=== PATIENT | male | born 1955 | race Caucasian/White ===

== ENCOUNTER 2021-09-30 20:41 | Emergency (ER) | payer OTHER ==
[~2021-09-30] VITALS: Ht 177.8 cm; Wt 106.6 kg
[~2021-09-30 20:41] MED LIST: ALLO100; ALLO100 PO; ALLOPURINOL; AMOX500 PO; ASPI81EC PO; BLOOD PRESSURE MED; BUPR150T2 PO; CARV25 PO; CLIN300 PO; COLC.6; COLC.6 PO; CRUTCH3 USE; CYCL10 PO; DIAZ10; DIAZ10 PO; DIAZ5; DIAZ5 PO; DIGO.125; DIGO.125 PO; DOCU100 PO; DULO30 PO; ETOD200 PO; ETOD300 PO; FENO145 PO; FLUO20; FLUO20 PO; GLIP10; GLIP10 PO; GLIP5; HYDACE10B PO; HYDACE5; HYDACE5 PO; HYDACE5325; INSN100I SC; INSR10I SC; INSULANI; INSULANI SC; KETO120T TP; LEVFLO500 PO; LEVO750; LEVSOD100; LEVSOD125 PO; LEVSOD175; LEVSOD200; LEVSOD200 PO; LISI20 PO; LORA1 PO; LOSA25 PO; MECL25 PO; METF500; METH10; METO100; METO100 PO; METO100ER; METO50ER; MIRT15 PO; MORP20ER PO; MORP30 PO; MORP30ER PO; NAPR500 PO; NAPR500ERA; NAPR550 PO; NIAC500 PO; NITR.4SL SL; ONDA4 PO; ONDA8ODT MM; OXYACE5T PO; OXYACE7.5T PO; OXYC5 PO; PRED20; PRED20 PO; PROM25 PO; QUET25 PO; RANI150; RXAMOX500 PO; RXHYDACE PO; RXNAPNA550 PO; RXOXYACE PO; RXTRAM50 PO; SENN187 PO; SIMV40; SIMV40 PO; SIMV5; SPIR25; TIZA4; TRAM50; TRAZ100; TRAZ50; TRAZ50 PO; TRIA80TC TOP; VALS80; VITAMIN A&D; WARF2.5; WARF2.5 PO; WARF4; WARF4 PO; WARF5; WARF5 PO; ZOLP10 PO; [UNRECOGNIZED DRUG - OTHER]; [UNRECOGNIZED DRUG - REMARK]; [UNRECOGNIZED DRUG - REMARK]; [UNRECOGNIZED DRUG - REMARK]; [UNRECOGNIZED DRUG - REMARK]; [UNRECOGNIZED DRUG - REMARK]; [UNRECOGNIZED DRUG - REMARK]; [UNRECOGNIZED DRUG - SUPPLY]
[2021-09-30 21:21] LABS: BASOPHILS ABSOLUTE AUTO 0.04 K/mm3 (0.00-0.23); BASOPHILS PERCENT AUTO 1 % (0-2); EOSINOPHILS PERCENT AUTO 1 % (0-6); Hematocrit 41.4 % (37.0-53.0); Hemoglobin 13.7 g/dL (13.5-17.5); IMMATURE GRAN ABSOLUTE AUTO 0.03 K/mm3 (0.00-0.10); IMMATURE GRAN PERCENT AUTO 0 % (0-1); LYMPHOCYTES PERCENT AUTO 5 % (21-46); MONOCYTES ABSOLUTE AUTO 0.74 K/mm3 (0.16-1.47); MONOCYTES PERCENT AUTO 9 % (4-13); Mean Corpuscular HGB 28.5 pg (26.0-34.0); Mean Corpuscular HGB Conc 33.1 g/dL (31.5-36.5); Mean Corpuscular Volume 86 fL (80-100); Mean Platelet Volume 10.8 fL (9.1-12.4); NEUTROPHILS ABSOLUTE AUTO 7.07 K/mm3 (1.96-9.15); NEUTROPHILS PERCENT AUTO 84 % (41-73); Platelet Count 187 K/mm3 (150-400); RDW Coefficient Variation 12.6 % (11.7-14.2); RDW Standard Deviation 39.5 fL (35.1-46.3); White Blood Cell Count 8.38 K/mm3 (4.00-11.30)
[2021-09-30 21:34] LABS: Influenza A, PCR NEGATIVE (NEGATIVE); Influenza B, PCR NEGATIVE (NEGATIVE); Resp Syncytial Virus, PCR NEGATIVE (NEGATIVE)
[2021-09-30 21:40] LABS: Alanine Aminotransfer (ALT/SGP 28 U/L (12-78); Albumin, Blood 3.4 g/dL (3.4-5.0); Albumin/Globulin Ratio 0.9 (0.8-1.8); Alk Phos 76 U/L (50-136); Anion Gap 7 mmol/L (6-16); Aspartate Aminotrans (AST/SGOT 21 U/L (12-37); Bilirubin, Total 0.9 mg/dL (0.1-1.0); Blood Urea Nitrogen 26 mg/dL (8-24); Bun/Creatinine Ratio 17.7 (12.0-20.0); CO2, Blood 23 mmol/L (21-32); Chloride, Blood 110 mmol/L (98-108); Creatinine, Blood 1.47 mg/dL (0.60-1.20); Globulin, Blood 3.8 g/dL (2.2-4.0); Glomerular Filtration Rate 48 (60-); Glucose, Blood 121 mg/dL (70-99); Potassium, Blood 4.2 mmol/L (3.5-5.5); Sodium, Blood 140 mmol/L (136-145); Total Protein, Blood 7.2 g/dL (6.4-8.2); Troponin I <0.015 ng/mL (0.000-0.040)
[2021-09-30 22:31] LABS: SARS-Cov-2 (COVID-19) PCR, MMC POSITIVE (NEGATIVE)
[2021-10-01] MEDS ORDERED: METO10 PO (00:55)
[2021-10-01] MEDS ORDERED: PROMETHAZINE12.5 M1 PO (00:55)
[2021-10-01] MEDS ORDERED: PRED20 PO (23:24)
[2021-10-01] MEDS ORDERED: HYDROCOD/ACETAM 5-32 (23:24)
[2021-10-02] MEDS ORDERED: ATOR40TA PO (01:59)
[2021-10-02] MEDS ORDERED: ELIQUIS5 M2 PO (01:59)
[2021-10-02] MEDS ORDERED: DOXE10 PO (02:00)
[2021-10-02] MEDS ORDERED: ZYRTEC10 M2 PO (02:00)
[2021-10-02] MEDS ORDERED: CYMBALTA30 M1 PO (02:00)
[2021-10-02] MEDS ORDERED: ESZO1 PO (02:01)
[2021-10-02] MEDS ORDERED: GABA400 PO (02:02)
[2021-10-02] MEDS ORDERED: INSULANPEN SC (02:10)
[2021-10-02] MEDS ORDERED: LOSA25 PO (02:10)
[2021-10-02] MEDS ORDERED: LEVSOD112 PO (02:10)
[2021-10-02] MEDS ORDERED: TOPROL XL200 MG PO (02:11)
[2021-10-02] MEDS ORDERED: METO50ER PO (02:12)
[2021-10-02] MEDS ORDERED: MORP15ER PO (02:13)
[2021-10-02] MEDS ORDERED: MIRT15 PO (02:13)
[2021-10-02] MEDS ORDERED: PANT40 PO (02:14)
[2021-10-02] MEDS ORDERED: PREG150 PO (02:14)
== END 2021-10-01 01:07 | disposition home or self-care (01) ==
LOC: ER 20:41
PROVIDERS: Physician Assistant
DX: U07.1 COVID-19 (principal); E03.9 Hypothyroidism, unspecified; I25.2 Old myocardial infarction; I50.9 Heart failure, unspecified; N18.9 Chronic kidney disease, unspecified; Z79.4 Long term (current) use of insulin
CPT/HCPCS: 0241U; 36415; 70450; 71045; 80053; 83880; 84484; 85025; 93005; 93010; 94640; 94664; 96374; 96375; 99284-25; A9270; J1790; J1885; J2765; J7030

== ENCOUNTER 2021-10-01 22:31 | Inpatient (IN) | payer OTHER ==
[~2021-10-01] VITALS: Ht 190.5 cm; Wt 102.5 kg
[~2021-10-01 22:31] MED LIST changes: +METO10 PO; +PROMETHAZINE12.5 M1 PO
[2021-10-01 22:47] LABS: BASOPHILS ABSOLUTE AUTO 0.04 K/mm3 (0.00-0.23); BASOPHILS PERCENT AUTO 1 % (0-2); EOSINOPHILS ABSOLUTE AUTO 0.07 K/mm3 (0.00-0.68); EOSINOPHILS PERCENT AUTO 1 % (0-6); Hematocrit 39.8 % (37.0-53.0); Hemoglobin 13.1 g/dL (13.5-17.5); IMMATURE GRAN ABSOLUTE AUTO 0.02 K/mm3 (0.00-0.10); IMMATURE GRAN PERCENT AUTO 0 % (0-1); LYMPHOCYTES ABSOLUTE AUTO 0.84 K/mm3 (0.84-5.20); LYMPHOCYTES PERCENT AUTO 17 % (21-46); MONOCYTES ABSOLUTE AUTO 0.75 K/mm3 (0.16-1.47); MONOCYTES PERCENT AUTO 15 % (4-13); Mean Corpuscular HGB 28.8 pg (26.0-34.0); Mean Corpuscular HGB Conc 32.9 g/dL (31.5-36.5); Mean Corpuscular Volume 88 fL (80-100); Mean Platelet Volume 11.4 fL (9.1-12.4); NEUTROPHILS ABSOLUTE AUTO 3.37 K/mm3 (1.96-9.15); NEUTROPHILS PERCENT AUTO 66 % (41-73); Platelet Count 143 K/mm3 (150-400); RDW Coefficient Variation 12.8 % (11.7-14.2); RDW Standard Deviation 41.2 fL (35.1-46.3); Red Blood Cell Count 4.55 M/mm3 (4.30-5.90); White Blood Cell Count 5.09 K/mm3 (4.00-11.30)
[2021-10-01 23:16] LABS: Alanine Aminotransfer (ALT/SGP 27 U/L (12-78); Albumin/Globulin Ratio 0.7 (0.8-1.8); Alk Phos 74 U/L (50-136); Anion Gap 9 mmol/L (6-16); Aspartate Aminotrans (AST/SGOT 26 U/L (12-37); Bilirubin, Total 0.5 mg/dL (0.1-1.0); Blood Urea Nitrogen 29 mg/dL (8-24); Bun/Creatinine Ratio 17.6 (12.0-20.0); CO2, Blood 23 mmol/L (21-32); Calcium, Blood 8.6 mg/dL (8.5-10.1); Chloride, Blood 107 mmol/L (98-108); Creatinine, Blood 1.65 mg/dL (0.60-1.20); Globulin, Blood 4.1 g/dL (2.2-4.0); Glomerular Filtration Rate 42 (60-); Glucose, Blood 248 mg/dL (70-99); Potassium, Blood 4.5 mmol/L (3.5-5.5); Sodium, Blood 139 mmol/L (136-145); Total Protein, Blood 7.1 g/dL (6.4-8.2); Troponin I <0.015 ng/mL (0.000-0.040)
[2021-10-01] MEDS ORDERED: PRED20 PO (23:24)
[2021-10-01] MEDS ORDERED: HYDROCOD/ACETAM 5-32 (23:24)
[2021-10-02] MEDS ORDERED: ATOR40TA PO (01:59)
[2021-10-02] MEDS ORDERED: ELIQUIS5 M2 PO (01:59)
[2021-10-02] MEDS ORDERED: DOXE10 PO (02:00)
[2021-10-02] MEDS ORDERED: CYMBALTA30 M1 PO (02:00)
[2021-10-02] MEDS ORDERED: ZYRTEC10 M2 PO (02:00)
[2021-10-02] MEDS ORDERED: ESZO1 PO (02:01)
[2021-10-02] MEDS ORDERED: GABA400 PO (02:02)
[2021-10-02] MEDS ORDERED: LEVSOD112 PO (02:10)
[2021-10-02] MEDS ORDERED: INSULANPEN SC (02:10)
[2021-10-02] MEDS ORDERED: LOSA25 PO (02:10)
[2021-10-02] MEDS ORDERED: TOPROL XL200 MG PO (02:11)
[2021-10-02] MEDS ORDERED: METO50ER PO (02:12)
[2021-10-02] MEDS ORDERED: MORP15ER PO (02:13)
[2021-10-02] MEDS ORDERED: MIRT15 PO (02:13)
[2021-10-02] MEDS ORDERED: PREG150 PO (02:14)
[2021-10-02] MEDS ORDERED: PANT40 PO (02:14)
[2021-10-02 03:28] LABS: Base Excess Venous -0.5 mmol/L; Bicarbonate Venous 23.8 mmol/L (24.0-30.0); PCO2 Venous 40.5 mmHg (38-42); PO2 Venous 53.2 mmHg (38-42); pH Blood Venous 7.39 (7.34-7.37)
[2021-10-02 03:33] LABS: BASOPHILS ABSOLUTE AUTO 0.02 K/mm3 (0.00-0.23); BASOPHILS PERCENT AUTO 0 % (0-2); EOSINOPHILS ABSOLUTE AUTO 0.01 K/mm3 (0.00-0.68); EOSINOPHILS PERCENT AUTO 0 % (0-6); Hematocrit 39.4 % (37.0-53.0); IMMATURE GRAN ABSOLUTE AUTO 0.01 K/mm3 (0.00-0.10); IMMATURE GRAN PERCENT AUTO 0 % (0-1); LYMPHOCYTES ABSOLUTE AUTO 0.25 K/mm3 (0.84-5.20); LYMPHOCYTES PERCENT AUTO 4 % (21-46); MONOCYTES ABSOLUTE AUTO 0.29 K/mm3 (0.16-1.47); MONOCYTES PERCENT AUTO 5 % (4-13); Mean Corpuscular HGB 28.6 pg (26.0-34.0); Mean Corpuscular Volume 87 fL (80-100); Mean Platelet Volume 11.4 fL (9.1-12.4); NEUTROPHILS ABSOLUTE AUTO 5.31 K/mm3 (1.96-9.15); NEUTROPHILS PERCENT AUTO 90 % (41-73); Platelet Count 125 K/mm3 (150-400); RDW Coefficient Variation 12.7 % (11.7-14.2); RDW Standard Deviation 40.2 fL (35.1-46.3); Red Blood Cell Count 4.54 M/mm3 (4.30-5.90); White Blood Cell Count 5.89 K/mm3 (4.00-11.30)
[2021-10-02 03:50] LABS: Albumin, Blood 3.3 g/dL (3.4-5.0); Albumin/Globulin Ratio 0.8 (0.8-1.8); Bilirubin, Total 0.6 mg/dL (0.1-1.0); Bun/Creatinine Ratio 17.2 (12.0-20.0); Creatinine, Blood 1.69 mg/dL (0.60-1.20); Globulin, Blood 3.9 g/dL (2.2-4.0); Total Protein, Blood 7.2 g/dL (6.4-8.2)
[2021-10-02 10:00] LABS: Source, Urine Clean Catch
[2021-10-02 10:15] LABS: Appearance, Urine Clear (Clear); Bilirubin, Urine Neg (Neg); Blood, Urine Neg (Neg); Glucose Qualitative, Urine Neg (Neg); Ketones, Urine Neg (Neg); Leukocyte Esterase, Urine Neg (Neg); Nitrite, Urine Neg (Neg); Protein, Urine Neg (Neg); Urobilinogen, Urine NORM (Normal)
[2021-10-02 10:40] LABS: Color, Urine Pale Yellow (P-Yellow)
--- NOTE | 2021-10-02 15:41 | NUR ---
Spiritual Care visit. Pt. was sitting up and alert but coughing significantly. Established rapport and empathetically listened to a life review. Pt. is unsetteled about the timing of his hospitalization, as he and his family are in the process of moving. Normalized patient experience. Explored sources of support smf explored issues of haroldo and belief. Offered emotional support and my pastoral presence during his hospitalization. Pt. displayed evidence of encouragement and improved hope. Pt. has a pleasant demeanor. Prayed with Pt. Pt. verbalized gratitude and welcomed a return visit.
--- NOTE | 2021-10-02 18:51 | NUR ---
SHIFT REVIEW, NO REAL CHANGE IN PT SINCE ADMITION. O2 4LT HF, PT TRANSFERED TO MED NO TELI. VITALS HAVE BEEN WNL. PT RESTING COMFORTABLE AND IN NO DISTRESS.
[2021-10-03 04:37] LABS: Calcium, Blood 8.9 mg/dL (8.5-10.1); Creatinine, Blood 1.5 mg/dL (0.60-1.20); Potassium, Blood 4.6 mmol/L (3.5-5.5)
--- NOTE | 2021-10-03 12:05 | NUR ---
Spiritual Care visit. Pt, was alert and on the phone. I stepped out for a moment for him to finish his call. Pt. Welcomed my visit. Pt. was a little unsettled about waiting for discharge. Facilitated a life review. Listened empathetically. Provided Pastoral christian counselor and provided anticipatory guidance for post-recovery. Pt. displayed evidence of agreement. Prayed with pt. and will monitor should he not be ready for discharge. Pt. verbalized gratitude and welcomed me to return.
--- NOTE | 2021-10-03 19:57 | NUR ---
SHIFT ASSESSMENT ASSUMED CARE OF PT @ 1900. PT A&OX4. VSS. DENIES C/O OF SHORTNESS OF BREATH, CURRENTLY ON ROOM AIR c O2 SATS >90%. OCCASIONAL COUGH WITH EXERTION. PT STATES HE IS FEELING MUCH BETTER TODAY AND IS ASKING ABOUT GOING HOME. PT MED STATUS, WILL CONTINUE TO MONITOR CLOSELY.
[2021-10-04 04:12] LABS: Bun/Creatinine Ratio 31.5 (12.0-20.0); Calcium, Blood 8.8 mg/dL (8.5-10.1); Creatinine, Blood 1.65 mg/dL (0.60-1.20); Potassium, Blood 4.5 mmol/L (3.5-5.5)
--- NOTE | 2021-10-04 06:09 | NUR ---
SHIFT SUMMARY PT ABLE TO SLEEP FOR MAJORITY OF THE NIGHT. PT REMAINS OFF OF SUPPLEMENTAL O2. SATS >90%. BP STABLE. PTS CBG ELEVATED. WHILE PROVIDING A DRINK FOR PT, THIS NURSE ASKED WHAT HE HAS BEEN DRINKING. PT STATED HE HAS BEEN DRINKING SPRITE DURING THE DAY. WHEN ASKED IF DRINK IS DIET, PT RESPONDED "I THINK". ICU DOES NOT STOCK DIET SPRITE, SO PT POTENTIALLY RECEIVING HIGH GLUCOSE BEVERAGE. DRINK REMOVED FROM BEDSIDE, PROVIDED PT WITH DIET SODA PER REQUEST. HOSPITALIST NOTIFIED REGARDING ELEVATED GLUCOSE, NEW ORDERS PLACED FOR GLARGINE, SEE MAR. NO OTHER ACUTE CHANGES.
--- NOTE | 2021-10-04 08:42 | NUR ---
AM NOTE... ASSUMED CARE OF PT AT 0700, THE PT IS A&Ox4 AND IND IN THE ROOM. THE PT'S VS STABLE THIS AM. PT IS ON RA WITH O2 SATS >98%. L/S CLEAR IN THE UPPER AND MID LOBES WITH FINE CRACKLES NOTED IN THE BASES. THE PLAN OF CARE IS FOR THE PT TO D/C HOME TODAY. THE PT DENIES ANY PAIN DURING THIS ASSESSMENT. CALL LIGHT IN REACH WILL CONTINUE TO MONITOR.
[2021-10-04] MEDS ORDERED: FURO40 PO (09:41)
--- NOTE | 2021-10-04 10:56 | NUR ---
PT D/C HOME... PT D/C HOME, ALL OF PT'S BELONGINGS PACKED AND SENT WITH THE PT. THE PT'S IVs WERE REMOVED WNL. VERBAL AND WRITTEN DISCHARGE EDUCATION PROVIDED TO THE PT, THE PT VERBALIZED HIS UNDERSTANDING. THE PT'S WAS CALLED AND UPDATED ON THE PT'S DISCHARGE PLANS. THE PT WAS ESCORTED OUT OF THE FACILITY VIA W/C.
[2021-10-10] MEDS ORDERED: CODEINE-GUAIFE120 M1 PO (16:11)
== END 2021-10-04 11:00 | disposition home or self-care (01) | DRG 871 ==
LOC: ER 22:31 → ICUE 10-02 02:44 → ICUW 10-02 02:44 → ICUE 10-02 02:45
PROVIDERS: Family Medicine; Internal Medicine; Student in an Organized Health Care Education/Training Program; ADMIT Family Medicine
PROC: 5A09357 Assistance with Respiratory Ventilation, Less than 24 Consecutive Hours, Continuous Positive Airway Pressure (ICD-10-PCS; principal; 2021-10-02)
PROC: 5A0935A Assistance with Respiratory Ventilation, Less than 24 Consecutive Hours, High Flow/Velocity Cannula (ICD-10-PCS; 2021-10-02)
PROC: 8E0ZXY6 Isolation (ICD-10-PCS; 2021-10-02)
PROC: 3E0333Z Introduction of Anti-inflammatory into Peripheral Vein, Percutaneous Approach (ICD-10-PCS; 2021-10-02)
PROC: XW033E5 Introduction of Remdesivir Anti-infective into Peripheral Vein, Percutaneous Approach, New Technology Group 5 (ICD-10-PCS; 2021-10-02)
PROC: XW0DXM6 Introduction of Baricitinib into Mouth and Pharynx, External Approach, New Technology Group 6 (ICD-10-PCS; 2021-10-02)
DX: A41.89 Other specified sepsis (principal); U07.1 COVID-19; J96.01 Acute respiratory failure with hypoxia; I50.23 Acute on chronic systolic (congestive) heart failure; I13.0 Hypertensive heart and chronic kidney disease with heart failure and stage 1 through stage 4 chronic kidney disease, or unspecified chronic kidney disease; R65.20 Severe sepsis without septic shock; I25.10 Atherosclerotic heart disease of native coronary artery without angina pectoris; I25.2 Old myocardial infarction; E11.22 Type 2 diabetes mellitus with diabetic chronic kidney disease; N18.30 Chronic kidney disease, stage 3 unspecified; E03.9 Hypothyroidism, unspecified; M10.9 Gout, unspecified; Z88.8 Allergy status to other drugs, medicaments and biological substances; Z91.018 Allergy to other foods; Z88.5 Allergy status to narcotic agent; Z28.21 Immunization not carried out because of patient refusal; Z79.899 Other long term (current) drug therapy; Z79.4 Long term (current) use of insulin; Z79.82 Long term (current) use of aspirin; Z95.0 Presence of cardiac pacemaker; Z87.891 Personal history of nicotine dependence
CPT/HCPCS: 36415; 71045; 71260; 80048; 80053; 81003; 82803; 82947; 83605; 83880; 84145; 84484; 85025; 87040; 93005; 93010; 94660; 96374; 96375; 97110; 97162; 99285-25; A9270; C9399; J0248; J0456; J0696; J1100; J1815; J1885; J1940; J7050; Q9967

== ENCOUNTER 2021-10-09 11:41 | Emergency (ER) | payer OTHER ==
[~2021-10-09] VITALS: Ht 177.8 cm; Wt 113.4 kg
[~2021-10-09 11:41] MED LIST changes: +ATOR40TA PO; +CYMBALTA30 M1 PO; +DOXE10 PO; +ELIQUIS5 M2 PO; +ESZO1 PO; +FURO40 PO; +GABA400 PO; +HYDROCOD/ACETAM 5-32; +INSULANPEN SC; +LEVSOD112 PO; +METO50ER PO; +MORP15ER PO; +PANT40 PO; +PREG150 PO; +TOPROL XL200 MG PO; +ZYRTEC10 M2 PO
[2021-10-09 13:05] LABS: BASOPHILS ABSOLUTE AUTO 0.01 K/mm3 (0.00-0.23); BASOPHILS PERCENT AUTO 0 % (0-2); EOSINOPHILS ABSOLUTE AUTO 0.11 K/mm3 (0.00-0.68); EOSINOPHILS PERCENT AUTO 2 % (0-6); Hematocrit 46.6 % (37.0-53.0); Hemoglobin 15.4 g/dL (13.5-17.5); IMMATURE GRAN ABSOLUTE AUTO 0.02 K/mm3 (0.00-0.10); IMMATURE GRAN PERCENT AUTO 0 % (0-1); LYMPHOCYTES ABSOLUTE AUTO 0.59 K/mm3 (0.84-5.20); LYMPHOCYTES PERCENT AUTO 11 % (21-46); MONOCYTES ABSOLUTE AUTO 0.49 K/mm3 (0.16-1.47); MONOCYTES PERCENT AUTO 9 % (4-13); Mean Corpuscular HGB 27.9 pg (26.0-34.0); Mean Corpuscular Volume 84 fL (80-100); Mean Platelet Volume 11.9 fL (9.1-12.4); NEUTROPHILS ABSOLUTE AUTO 4.01 K/mm3 (1.96-9.15); NEUTROPHILS PERCENT AUTO 77 % (41-73); Platelet Count 124 K/mm3 (150-400); RDW Coefficient Variation 12.4 % (11.7-14.2); Red Blood Cell Count 5.52 M/mm3 (4.30-5.90); White Blood Cell Count 5.23 K/mm3 (4.00-11.30)
[2021-10-09 13:25] LABS: Albumin, Blood 3.2 g/dL (3.4-5.0); Albumin/Globulin Ratio 0.8 (0.8-1.8); Bilirubin, Total 0.3 mg/dL (0.1-1.0); Bun/Creatinine Ratio 19.6 (12.0-20.0); Calcium, Blood 8.5 mg/dL (8.5-10.1); Creatinine, Blood 1.84 mg/dL (0.60-1.20); Globulin, Blood 4.2 g/dL (2.2-4.0); Potassium, Blood 4.4 mmol/L (3.5-5.5); Total Protein, Blood 7.4 g/dL (6.4-8.2)
[2021-10-09] MEDS ORDERED: BENZ100A PO (17:00)
[2021-10-10] MEDS ORDERED: CODEINE-GUAIFE120 M1 PO (16:11)
== END 2021-10-09 17:12 | disposition home or self-care (01) ==
LOC: ER 11:41
PROVIDERS: Physician Assistant
DX: U07.1 COVID-19 (principal); I95.1 Orthostatic hypotension; E86.0 Dehydration; I25.2 Old myocardial infarction; I25.10 Atherosclerotic heart disease of native coronary artery without angina pectoris; E11.22 Type 2 diabetes mellitus with diabetic chronic kidney disease; I13.0 Hypertensive heart and chronic kidney disease with heart failure and stage 1 through stage 4 chronic kidney disease, or unspecified chronic kidney disease; N18.30 Chronic kidney disease, stage 3 unspecified; I50.9 Heart failure, unspecified; E03.9 Hypothyroidism, unspecified; Z79.899 Other long term (current) drug therapy; Z79.4 Long term (current) use of insulin; Z88.6 Allergy status to analgesic agent; Z91.018 Allergy to other foods; Z88.8 Allergy status to other drugs, medicaments and biological substances; Z88.5 Allergy status to narcotic agent; Z87.891 Personal history of nicotine dependence
CPT/HCPCS: 36415; 71045; 80053; 83880; 84145; 84484; 85025; 94640; 99284-25; A9270; J7030

== ENCOUNTER 2021-10-12 09:26 | Emergency (ER) | payer OTHER ==
[~2021-10-12] VITALS: Ht 177.8 cm; Wt 113.4 kg
[~2021-10-12 09:26] MED LIST changes: +BENZ100A PO; +CODEINE-GUAIFE120 M1 PO
[2021-10-12 10:20] LABS: BASOPHILS ABSOLUTE AUTO 0.01 K/mm3 (0.00-0.23); BASOPHILS PERCENT AUTO 0 % (0-2); EOSINOPHILS ABSOLUTE AUTO 0.02 K/mm3 (0.00-0.68); EOSINOPHILS PERCENT AUTO 0 % (0-6); Hemoglobin 14.8 g/dL (13.5-17.5); IMMATURE GRAN ABSOLUTE AUTO 0.04 K/mm3 (0.00-0.10); IMMATURE GRAN PERCENT AUTO 1 % (0-1); LYMPHOCYTES ABSOLUTE AUTO 0.84 K/mm3 (0.84-5.20); LYMPHOCYTES PERCENT AUTO 11 % (21-46); MONOCYTES ABSOLUTE AUTO 0.69 K/mm3 (0.16-1.47); MONOCYTES PERCENT AUTO 9 % (4-13); Mean Corpuscular HGB 27.9 pg (26.0-34.0); Mean Corpuscular HGB Conc 32.9 g/dL (31.5-36.5); Mean Corpuscular Volume 85 fL (80-100); Mean Platelet Volume 11.1 fL (9.1-12.4); NEUTROPHILS ABSOLUTE AUTO 5.93 K/mm3 (1.96-9.15); NEUTROPHILS PERCENT AUTO 79 % (41-73); Platelet Count 148 K/mm3 (150-400); RDW Coefficient Variation 12.5 % (11.7-14.2); RDW Standard Deviation 38.5 fL (35.1-46.3); Red Blood Cell Count 5.31 M/mm3 (4.30-5.90); White Blood Cell Count 7.53 K/mm3 (4.00-11.30)
[2021-10-12 10:51] LABS: Alanine Aminotransfer (ALT/SGP 21 U/L (12-78); Albumin/Globulin Ratio 0.7 (0.8-1.8); Alk Phos 84 U/L (50-136); Anion Gap 8 mmol/L (6-16); Aspartate Aminotrans (AST/SGOT 33 U/L (12-37); Bilirubin, Total 0.5 mg/dL (0.1-1.0); Blood Urea Nitrogen 17 mg/dL (8-24); Bun/Creatinine Ratio 14.5 (12.0-20.0); CO2, Blood 23 mmol/L (21-32); Calcium, Blood 8.8 mg/dL (8.5-10.1); Chloride, Blood 103 mmol/L (98-108); Creatinine, Blood 1.17 mg/dL (0.60-1.20); Globulin, Blood 4.4 g/dL (2.2-4.0); Glomerular Filtration Rate >60 (60-); Glucose, Blood 196 mg/dL (70-99); Potassium, Blood 4.2 mmol/L (3.5-5.5); Sodium, Blood 134 mmol/L (136-145); Total Protein, Blood 7.4 g/dL (6.4-8.2); Troponin I <0.015 ng/mL (0.000-0.040)
[2021-10-12] MEDS ORDERED: BENZ100A PO (11:21)
[2021-10-12] MEDS ORDERED: Mucinex600 MG PO (11:21)
[2021-10-12] MEDS ORDERED: ONDA4ODT MM (11:48)
== END 2021-10-12 11:50 | disposition home or self-care (01) ==
LOC: ER 09:26
PROVIDERS: Emergency Medicine
DX: U07.1 COVID-19 (principal); S39.011A Strain of muscle, fascia and tendon of abdomen, initial encounter; E03.9 Hypothyroidism, unspecified; E11.22 Type 2 diabetes mellitus with diabetic chronic kidney disease; I13.0 Hypertensive heart and chronic kidney disease with heart failure and stage 1 through stage 4 chronic kidney disease, or unspecified chronic kidney disease; N18.30 Chronic kidney disease, stage 3 unspecified; I50.9 Heart failure, unspecified; Z87.891 Personal history of nicotine dependence; Z88.8 Allergy status to other drugs, medicaments and biological substances; X58.XXXA Exposure to other specified factors, initial encounter
CPT/HCPCS: 36415; 71045; 80053; 83690; 84484; 85025; 85379; 93005; 93010; 96374; 96375; 99285-25; J2270; J2405

== ENCOUNTER 2022-08-17 10:17 | Emergency (ER) | payer OTHER ==
[~2022-08-17] VITALS: Ht 177.8 cm; Wt 89.8 kg
[~2022-08-17 10:17] MED LIST changes: +Mucinex600 MG PO; +ONDA4ODT MM
[2022-08-17] MEDS ORDERED: Percocet 5-3251 EACH PO ×3 (14:08→15:47)
== END 2022-08-17 14:20 | disposition home or self-care (01) ==
LOC: ER 10:17
DX: M25.532 Pain in left wrist (principal); I13.0 Hypertensive heart and chronic kidney disease with heart failure and stage 1 through stage 4 chronic kidney disease, or unspecified chronic kidney disease; I50.9 Heart failure, unspecified; E11.22 Type 2 diabetes mellitus with diabetic chronic kidney disease; N18.30 Chronic kidney disease, stage 3 unspecified; I25.2 Old myocardial infarction; I25.10 Atherosclerotic heart disease of native coronary artery without angina pectoris; E03.9 Hypothyroidism, unspecified; V89.2XXA Person injured in unspecified motor-vehicle accident, traffic, initial encounter; Z79.4 Long term (current) use of insulin; Z79.899 Other long term (current) drug therapy; Z79.01 Long term (current) use of anticoagulants; Z88.8 Allergy status to other drugs, medicaments and biological substances; Z79.890 Hormone replacement therapy
CPT/HCPCS: 73110

== ENCOUNTER 2022-08-24 12:20 | Inpatient (IN) | payer OTHER, MEDICARE ==
[~2022-08-24] VITALS: Ht 177.8 cm; Wt 89.4 kg
[~2022-08-24 12:20] MED LIST changes: +Percocet 5-3251 EACH PO
[2022-08-24 14:03] LABS: BASOPHILS ABSOLUTE AUTO 0.11 K/mm3 (0.00-0.23); BASOPHILS PERCENT AUTO 1 % (0-2); EOSINOPHILS PERCENT AUTO 2 % (0-6); Hematocrit 46.9 % (37.0-53.0); Hemoglobin 15.5 g/dL (13.5-17.5); IMMATURE GRAN ABSOLUTE AUTO 0.04 K/mm3 (0.00-0.10); IMMATURE GRAN PERCENT AUTO 0 % (0-1); LYMPHOCYTES ABSOLUTE AUTO 1.89 K/mm3 (0.84-5.20); LYMPHOCYTES PERCENT AUTO 19 % (21-46); MONOCYTES ABSOLUTE AUTO 0.81 K/mm3 (0.16-1.47); MONOCYTES PERCENT AUTO 8 % (4-13); Mean Corpuscular HGB 29.1 pg (26.0-34.0); Mean Corpuscular Volume 88 fL (80-100); Mean Platelet Volume 10.4 fL (9.1-12.4); NEUTROPHILS ABSOLUTE AUTO 6.79 K/mm3 (1.96-9.15); NEUTROPHILS PERCENT AUTO 69 % (41-73); Platelet Count 261 K/mm3 (150-400); RDW Coefficient Variation 14.1 % (11.7-14.2); RDW Standard Deviation 45.1 fL (35.1-46.3); Red Blood Cell Count 5.32 M/mm3 (4.30-5.90); White Blood Cell Count 9.84 K/mm3 (4.00-11.30)
[2022-08-24 14:22] LABS: Albumin, Blood 3.5 g/dL (3.4-5.0); Albumin/Globulin Ratio 0.9 (0.8-1.8); Bilirubin, Total 0.7 mg/dL (0.1-1.0); Bun/Creatinine Ratio 14.7 (12.0-20.0); Calcium, Blood 9.2 mg/dL (8.5-10.1); Creatinine, Blood 1.56 mg/dL (0.60-1.20); Globulin, Blood 3.9 g/dL (2.2-4.0); Potassium, Blood 4.6 mmol/L (3.5-5.5); Total Protein, Blood 7.4 g/dL (6.4-8.2)
[2022-08-24 18:33] LABS: Influenza A, PCR NEGATIVE (NEGATIVE); Influenza B, PCR NEGATIVE (NEGATIVE); Resp Syncytial Virus, PCR NEGATIVE (NEGATIVE); SARS-Cov-2 (COVID-19) PCR, MMC NEGATIVE (NEGATIVE)
[2022-08-25 06:24] LABS: BASOPHILS ABSOLUTE AUTO 0.11 K/mm3 (0.00-0.23); BASOPHILS PERCENT AUTO 1 % (0-2); EOSINOPHILS PERCENT AUTO 3 % (0-6); Hematocrit 46.1 % (37.0-53.0); Hemoglobin 15.6 g/dL (13.5-17.5); IMMATURE GRAN ABSOLUTE AUTO 0.02 K/mm3 (0.00-0.10); IMMATURE GRAN PERCENT AUTO 0 % (0-1); LYMPHOCYTES ABSOLUTE AUTO 2.78 K/mm3 (0.84-5.20); LYMPHOCYTES PERCENT AUTO 27 % (21-46); MONOCYTES ABSOLUTE AUTO 0.93 K/mm3 (0.16-1.47); MONOCYTES PERCENT AUTO 9 % (4-13); Mean Corpuscular HGB 28.9 pg (26.0-34.0); Mean Corpuscular HGB Conc 33.8 g/dL (31.5-36.5); Mean Corpuscular Volume 85 fL (80-100); Mean Platelet Volume 10.2 fL (9.1-12.4); NEUTROPHILS PERCENT AUTO 60 % (41-73); Platelet Count 272 K/mm3 (150-400); RDW Coefficient Variation 14.1 % (11.7-14.2); RDW Standard Deviation 43.5 fL (35.1-46.3); White Blood Cell Count 10.24 K/mm3 (4.00-11.30)
[2022-08-25 06:48] LABS: Bun/Creatinine Ratio 14.1 (12.0-20.0); Calcium, Blood 8.9 mg/dL (8.5-10.1); Creatinine, Blood 1.85 mg/dL (0.60-1.20); Potassium, Blood 4.1 mmol/L (3.5-5.5)
[2022-08-25 08:14] LABS: Albumin, Blood 3.3 g/dL (3.4-5.0); Albumin/Globulin Ratio 0.8 (0.8-1.8); Bilirubin, Direct 0.1 mg/dL (0.0-0.3); Bilirubin, Indirect 0.4 mg/dL (0.1-0.7); Bilirubin, Total 0.5 mg/dL (0.1-1.0); Globulin, Blood 4.1 g/dL (2.2-4.0); Total Protein, Blood 7.4 g/dL (6.4-8.2)
[2022-08-26 07:36] LABS: Albumin, Blood 3.2 g/dL (3.4-5.0); Anion Gap 9 mmol/L (6-16); Blood Urea Nitrogen 35 mg/dL (8-24); Bun/Creatinine Ratio 19.6 (12.0-20.0); CO2, Blood 29 mmol/L (21-32); Calcium, Blood 9.2 mg/dL (8.5-10.1); Chloride, Blood 101 mmol/L (98-108); Creatinine, Blood 1.79 mg/dL (0.60-1.20); Glomerular Filtration Rate 41 (60-); Glucose, Blood 159 mg/dL (70-99); Phosphorus, Blood 4.2 mg/dL (2.5-4.9); Sodium, Blood 139 mmol/L (136-145)
[2022-08-27 06:17] LABS: Albumin, Blood 3.3 g/dL (3.4-5.0); Albumin/Globulin Ratio 0.9 (0.8-1.8); Bilirubin, Total 0.7 mg/dL (0.1-1.0); Bun/Creatinine Ratio 24.6 (12.0-20.0); Calcium, Blood 9.3 mg/dL (8.5-10.1); Creatinine, Blood 1.75 mg/dL (0.60-1.20); Globulin, Blood 3.7 g/dL (2.2-4.0); Magnesium, Blood 2.1 mg/dL (1.6-2.4); Potassium, Blood 3.9 mmol/L (3.5-5.5)
[2022-08-27] MEDS ORDERED: SPIR25 PO (12:13)
[2022-08-27] MEDS ORDERED: PANT40 PO (12:13)
[2022-08-27] MEDS ORDERED: JARDIANCE10 MG PO (12:13)
[2022-08-27] MEDS ORDERED: TORSE20 PO (12:14)
== END 2022-08-27 13:08 | disposition home or self-care (01) | DRG 291 ==
LOC: ER 12:20 → ERHOLD 23:22 → SURS 08-25 00:33
PROVIDERS: Family Medicine; Internal Medicine; Physician Assistant; Student in an Organized Health Care Education/Training Program; Surgery; ADMIT Internal Medicine
DX: I13.0 Hypertensive heart and chronic kidney disease with heart failure and stage 1 through stage 4 chronic kidney disease, or unspecified chronic kidney disease (principal); I50.23 Acute on chronic systolic (congestive) heart failure; N17.9 Acute kidney failure, unspecified; Z20.822 Contact with and (suspected) exposure to COVID-19; Z28.21 Immunization not carried out because of patient refusal; N18.30 Chronic kidney disease, stage 3 unspecified; I25.10 Atherosclerotic heart disease of native coronary artery without angina pectoris; E03.9 Hypothyroidism, unspecified; E11.22 Type 2 diabetes mellitus with diabetic chronic kidney disease; M10.9 Gout, unspecified; M54.40 Lumbago with sciatica, unspecified side; I42.8 Other cardiomyopathies; I34.0 Nonrheumatic mitral (valve) insufficiency; I25.2 Old myocardial infarction; Z86.16 Personal history of COVID-19; Z95.0 Presence of cardiac pacemaker; Z90.49 Acquired absence of other specified parts of digestive tract; Z87.891 Personal history of nicotine dependence; Z88.8 Allergy status to other drugs, medicaments and biological substances; Z79.4 Long term (current) use of insulin; Z79.01 Long term (current) use of anticoagulants; Z79.899 Other long term (current) drug therapy
CPT/HCPCS: 0241U; 36415; 71046; 74177; 76705; 78226; 80048; 80053; 80069; 80076; 82947; 83690; 83735; 83880; 84443; 84484; 85025; 93005; 93010; 96365; 96375; 96376; 99285-25; A9270; A9537; C8929; J0456; J0696; J1200; J1940; J2405; J3010; J7050; Q9957; Q9967

== ENCOUNTER 2022-09-27 20:24 | Emergency (ER) | payer OTHER ==
[~2022-09-27] VITALS: Ht 182.9 cm; Wt 90.7 kg
[~2022-09-27 20:24] MED LIST changes: +JARDIANCE10 MG PO; +SPIR25 PO; +TORSE20 PO
[2022-09-27 21:33] LABS: BASOPHILS ABSOLUTE AUTO 0.08 K/mm3 (0.00-0.23); BASOPHILS PERCENT AUTO 1 % (0-2); EOSINOPHILS ABSOLUTE AUTO 0.09 K/mm3 (0.00-0.68); EOSINOPHILS PERCENT AUTO 1 % (0-6); Hematocrit 46.2 % (37.0-53.0); Hemoglobin 15.3 g/dL (13.5-17.5); IMMATURE GRAN ABSOLUTE AUTO 0.04 K/mm3 (0.00-0.10); IMMATURE GRAN PERCENT AUTO 0 % (0-1); LYMPHOCYTES ABSOLUTE AUTO 1.33 K/mm3 (0.84-5.20); LYMPHOCYTES PERCENT AUTO 13 % (21-46); MONOCYTES ABSOLUTE AUTO 0.67 K/mm3 (0.16-1.47); MONOCYTES PERCENT AUTO 7 % (4-13); Mean Corpuscular HGB 28.9 pg (26.0-34.0); Mean Corpuscular HGB Conc 33.1 g/dL (31.5-36.5); Mean Corpuscular Volume 87 fL (80-100); Mean Platelet Volume 10.9 fL (9.1-12.4); NEUTROPHILS ABSOLUTE AUTO 7.75 K/mm3 (1.96-9.15); NEUTROPHILS PERCENT AUTO 78 % (41-73); Platelet Count 194 K/mm3 (150-400); RDW Coefficient Variation 14.3 % (11.7-14.2); RDW Standard Deviation 45.7 fL (35.1-46.3); Red Blood Cell Count 5.29 M/mm3 (4.30-5.90); White Blood Cell Count 9.96 K/mm3 (4.00-11.30)
[2022-09-27 21:36] LABS: Alanine Aminotransfer (ALT/SGP 37 U/L (12-78); Albumin, Blood 3.5 g/dL (3.4-5.0); Albumin/Globulin Ratio 1.1 (0.8-1.8); Alk Phos 55 U/L (50-136); Anion Gap 6 mmol/L (6-16); Aspartate Aminotrans (AST/SGOT 17 U/L (12-37); Bilirubin, Total 0.4 mg/dL (0.1-1.0); Blood Urea Nitrogen 31 mg/dL (8-24); Bun/Creatinine Ratio 17.4 (12.0-20.0); CO2, Blood 25 mmol/L (21-32); Calcium, Blood 9.3 mg/dL (8.5-10.1); Chloride, Blood 109 mmol/L (98-108); Creatinine, Blood 1.78 mg/dL (0.60-1.20); Ethanol (Alcohol), Blood, Med <3 mg/dL; Globulin, Blood 3.2 g/dL (2.2-4.0); Glomerular Filtration Rate 41 (60-); Glucose, Blood 187 mg/dL (70-99); Potassium, Blood 4.1 mmol/L (3.5-5.5); Sodium, Blood 140 mmol/L (136-145); Total Protein, Blood 6.7 g/dL (6.4-8.2)
[2022-09-27] MEDS ORDERED: JARDIANCE10 MG PO (23:58)
== END 2022-09-28 06:29 | disposition home or self-care (01) ==
LOC: ER 20:24
PROVIDERS: Emergency Medicine
DX: R41.82 Altered mental status, unspecified (principal); T40.715A Adverse effect of cannabis, initial encounter; I95.9 Hypotension, unspecified; I50.9 Heart failure, unspecified; I25.2 Old myocardial infarction; E03.9 Hypothyroidism, unspecified; Z88.8 Allergy status to other drugs, medicaments and biological substances; Z79.899 Other long term (current) drug therapy; Z79.01 Long term (current) use of anticoagulants; Z79.890 Hormone replacement therapy; Z95.0 Presence of cardiac pacemaker
CPT/HCPCS: 80053; 84484; 85025; 93005; 93010; G0480; J7060

== ENCOUNTER 2023-01-17 19:01 | Emergency (ER) | payer OTHER ==
[~2023-01-17] VITALS: Ht 177.8 cm; Wt 85.7 kg
[2023-01-17 19:42] LABS: BASOPHILS ABSOLUTE AUTO 0.08 K/mm3 (0.00-0.23); BASOPHILS PERCENT AUTO 1 % (0-2); EOSINOPHILS ABSOLUTE AUTO 0.16 K/mm3 (0.00-0.68); EOSINOPHILS PERCENT AUTO 2 % (0-6); Hematocrit 45.3 % (37.0-53.0); Hemoglobin 15.4 g/dL (13.5-17.5); IMMATURE GRAN ABSOLUTE AUTO 0.02 K/mm3 (0.00-0.10); IMMATURE GRAN PERCENT AUTO 0 % (0-1); LYMPHOCYTES ABSOLUTE AUTO 1.69 K/mm3 (0.84-5.20); LYMPHOCYTES PERCENT AUTO 22 % (21-46); MONOCYTES ABSOLUTE AUTO 0.67 K/mm3 (0.16-1.47); MONOCYTES PERCENT AUTO 9 % (4-13); Mean Corpuscular HGB 30.3 pg (26.0-34.0); Mean Corpuscular Volume 89 fL (80-100); Mean Platelet Volume 10.6 fL (9.1-12.4); NEUTROPHILS ABSOLUTE AUTO 4.92 K/mm3 (1.96-9.15); NEUTROPHILS PERCENT AUTO 65 % (41-73); Platelet Count 211 K/mm3 (150-400); RDW Coefficient Variation 13.1 % (11.7-14.2); RDW Standard Deviation 42.8 fL (35.1-46.3); Red Blood Cell Count 5.09 M/mm3 (4.30-5.90); White Blood Cell Count 7.54 K/mm3 (4.00-11.30)
[2023-01-17 20:01] LABS: Albumin, Blood 3.7 g/dL (3.4-5.0); Bilirubin, Total 0.6 mg/dL (0.1-1.0); Bun/Creatinine Ratio 18.7 (12.0-20.0); Calcium, Blood 9.1 mg/dL (8.5-10.1); Creatinine, Blood 1.39 mg/dL (0.60-1.20); Globulin, Blood 3.7 g/dL (2.2-4.0); Potassium, Blood 3.6 mmol/L (3.5-5.5); Total Protein, Blood 7.4 g/dL (6.4-8.2)
[2023-01-18 05:30] VITALS: BP 104/70
== END 2023-01-18 05:34 | disposition home or self-care (01) ==
LOC: ER 19:01
PROVIDERS: Emergency Medicine
DX: R10.13 Epigastric pain (principal); R11.2 Nausea with vomiting, unspecified; Z88.8 Allergy status to other drugs, medicaments and biological substances; Z79.899 Other long term (current) drug therapy; I50.9 Heart failure, unspecified; I13.0 Hypertensive heart and chronic kidney disease with heart failure and stage 1 through stage 4 chronic kidney disease, or unspecified chronic kidney disease; N18.30 Chronic kidney disease, stage 3 unspecified; E11.22 Type 2 diabetes mellitus with diabetic chronic kidney disease; E03.9 Hypothyroidism, unspecified; M10.9 Gout, unspecified; Z87.891 Personal history of nicotine dependence
CPT/HCPCS: 71046; 74177; 80053; 83690; 84484; 85025; 93005; 93010; 96374-59; 96375; 96376; 99285-25; J2405; J3010; Q9967

== ENCOUNTER 2023-04-12 11:57 | Inpatient (IN) | payer OTHER ==
[~2023-04-12] VITALS: Ht 177.8 cm; Wt 89.4 kg
[~2023-04-12 11:57] MED LIST changes: +AMIT25 PO; +FAMO20 PO; +FURO20 PO; +MIRALAX17 GM PO; +PANT20 PO; +PROB500 PO
[2023-04-12 12:40] LABS: BASOPHILS ABSOLUTE AUTO 0.09 K/mm3 (0.00-0.23); BASOPHILS PERCENT AUTO 1 % (0-2); EOSINOPHILS ABSOLUTE AUTO 0.22 K/mm3 (0.00-0.68); EOSINOPHILS PERCENT AUTO 2 % (0-6); Hematocrit 48.1 % (37.0-53.0); Hemoglobin 15.6 g/dL (13.5-17.5); IMMATURE GRAN ABSOLUTE AUTO 0.05 K/mm3 (0.00-0.10); IMMATURE GRAN PERCENT AUTO 1 % (0-1); LYMPHOCYTES ABSOLUTE AUTO 1.42 K/mm3 (0.84-5.20); LYMPHOCYTES PERCENT AUTO 15 % (21-46); MONOCYTES ABSOLUTE AUTO 1.07 K/mm3 (0.16-1.47); MONOCYTES PERCENT AUTO 11 % (4-13); Mean Corpuscular HGB 30.1 pg (26.0-34.0); Mean Corpuscular HGB Conc 32.4 g/dL (31.5-36.5); Mean Corpuscular Volume 93 fL (80-100); Mean Platelet Volume 10.6 fL (9.1-12.4); NEUTROPHILS ABSOLUTE AUTO 6.97 K/mm3 (1.96-9.15); NEUTROPHILS PERCENT AUTO 71 % (41-73); Platelet Count 211 K/mm3 (150-400); RDW Coefficient Variation 16.1 % (11.7-14.2); RDW Standard Deviation 53.9 fL (35.1-46.3); Red Blood Cell Count 5.19 M/mm3 (4.30-5.90); White Blood Cell Count 9.82 K/mm3 (4.00-11.30)
[2023-04-12 13:02] LABS: Albumin, Blood 2.9 g/dL (3.4-5.0); Albumin/Globulin Ratio 0.7 (0.8-1.8); Bilirubin, Total 0.6 mg/dL (0.1-1.0); Bun/Creatinine Ratio 17.4 (12.0-20.0); Calcium, Blood 8.5 mg/dL (8.5-10.1); Creatinine, Blood 1.72 mg/dL (0.60-1.20); Globulin, Blood 3.9 g/dL (2.2-4.0); Potassium, Blood 3.8 mmol/L (3.5-5.5); Total Protein, Blood 6.8 g/dL (6.4-8.2)
[2023-04-12] MEDS ORDERED: FAMO20 PO (16:23)
[2023-04-12] MEDS ORDERED: SOAANZ20 M3 PO (16:25)
[2023-04-12 17:02] VITALS: BP 106/81
--- NOTE | 2023-04-12 17:54 | NUR ---
RECEIVED CALL FROM TELE REPORTING THAT PT HAD A 16 BEAT RUN OF SVT. CALLED AND NOTIFIED HOSPITALIST. NO NEW ORDERS AT THIS TIME.
--- NOTE | 2023-04-12 18:05 | NUR ---
CALLED AND SPOKE WITH HOSPITALIST REGARDING NPO STATUS. HOSPITALIST STATED PT OK TO HAVE DIET UNTIL MORNING FOR POSSIBLE PROCEDURE TOMORROW. PT TO BE NPO AT MIDNIGHT.
--- NOTE | 2023-04-12 18:42 | NUR ---
SHIFT SUMMARY: NIKKI IS A&OX4. VSS, NO ACUTE EVENTS SINCE ADMISSION TO THE FLOOR THIS SHIFT WITH THE EXCEPTION OF A 16 BEAT RUN OF SVT. PT TO BE NPO AT MIDNIGHT. HE IS TOLERATING PO INTAKE WELL, USES THE CALL LIGHT APPROPRIATELY, AND IS VOIDING IN THE URINAL WITHOUT DIFFICULTY. HE IS AWARE OF CURRENT BEDREST ORDER, TELE IN PLACE. FIRE SAFETY EDUCATION PERFORMED, PT AND BOTH DENY HAVING ANY ITEMS THAT COULD CREATE A SPARK OR FLAME AND VOICED UNDERSTANDING THAT SUCH ITEMS ARE NEVER ALLOWED AT [facility]. HE IS LYING IN BED WITH THE CALL LIGHT IN REACH. WCTM UNTIL REPORT IS GIVEN TO EQUIPMENT MAINTENANCE SUPERINTENDENT RN.
[2023-04-12 20:12] VITALS: BP 103/86
--- NOTE | 2023-04-13 05:35 | NUR ---
SHIFT SUMMARY FAMILY AT BEDSIDE AT CHANGE OF SHIFT AND EXPRESSED EXTREME CONCERNS ABOUT PATIENT NOT HAVING A CARDIOLOGY CONSULT TO "FIGURE OUT WHAT IS WRONG WITH HIS HEART". OFFGOING RN AND I EXPLAINED TO THEM THAT HE HAS HEART FAILURE WHICH IS CAUSING A BUILDUP OF FLUID WHICH IS CAUSING HIS CURRENT COMPLAINTS. FAMILY DOES NOT SEEM TO UNDERSTAND THIS CONCEPT AND THINKS SUPPORT FROM A TUG BOAT CAPTAIN IS STILL NEEDED TO FIGURE OUT WHAT IS WRONG WITH HIS HEART. PT STATED HE STILL FELT SOB ON THE 0.5L NC, INCREASED PT TO 3L AND HE STATED HE FELT MUCH MORE COMFORTALBE. NO OTHER EVENTS OVERNIGHT. NPO SINCE MIDNIGHT. Q1H FIRE SAFETY CHECKS COMPLETED
[2023-04-13 05:38] LABS: BASOPHILS ABSOLUTE AUTO 0.07 K/mm3 (0.00-0.23); BASOPHILS PERCENT AUTO 1 % (0-2); EOSINOPHILS ABSOLUTE AUTO 0.28 K/mm3 (0.00-0.68); EOSINOPHILS PERCENT AUTO 3 % (0-6); Hematocrit 45.4 % (37.0-53.0); Hemoglobin 14.9 g/dL (13.5-17.5); IMMATURE GRAN ABSOLUTE AUTO 0.04 K/mm3 (0.00-0.10); IMMATURE GRAN PERCENT AUTO 0 % (0-1); LYMPHOCYTES PERCENT AUTO 18 % (21-46); MONOCYTES ABSOLUTE AUTO 1.05 K/mm3 (0.16-1.47); MONOCYTES PERCENT AUTO 11 % (4-13); Mean Corpuscular HGB 29.9 pg (26.0-34.0); Mean Corpuscular HGB Conc 32.8 g/dL (31.5-36.5); Mean Corpuscular Volume 91 fL (80-100); NEUTROPHILS ABSOLUTE AUTO 6.24 K/mm3 (1.96-9.15); NEUTROPHILS PERCENT AUTO 67 % (41-73); Platelet Count 196 K/mm3 (150-400); RDW Coefficient Variation 16.2 % (11.7-14.2); RDW Standard Deviation 52.9 fL (35.1-46.3); Red Blood Cell Count 4.98 M/mm3 (4.30-5.90); White Blood Cell Count 9.38 K/mm3 (4.00-11.30)
[2023-04-13 06:01] VITALS: BP 103/90
[2023-04-13 06:04] LABS: Albumin, Blood 2.5 g/dL (3.4-5.0); Albumin/Globulin Ratio 0.7 (0.8-1.8); Bilirubin, Total 0.7 mg/dL (0.1-1.0); Bun/Creatinine Ratio 18.3 (12.0-20.0); Calcium, Blood 8.4 mg/dL (8.5-10.1); Creatinine, Blood 1.8 mg/dL (0.60-1.20); Globulin, Blood 3.5 g/dL (2.2-4.0); Potassium, Blood 3.8 mmol/L (3.5-5.5)
--- NOTE | 2023-04-13 07:30 | NUR ---
ASSUMED CARE: PT RESTING QUIETLY AT THIS TIME. NSR WITH BBB ON TELE IN THE 70S. 3L O2 IN PLACE FOR SOB. PT DENIES CP AT THIS TIME. NO ACUTE NEEDS OR CONCERNS.
[2023-04-13 08:05] VITALS: BP 104/84
--- NOTE | 2023-04-13 10:11 | NUR ---
PT GIVEN WATER PER INSTRUCTION OF NUC MED FOR CONTRAST CLEARANCE.
--- NOTE | 2023-04-13 13:26 | NUR ---
[facility] WANTED PT TO EAT AFTER SECOND PORTION. CALL TO DR MARQUEZ DUE TO PT'S NPO ORDER. SPOKE WITH DR QUINTANILLA WHO INSTRUCTED PT COULD EAT AND HE MAY SCOPE HIM TOMORROW BUT DR QUINTANILLA WILL PUT FURTHER ORDERS FOR GI PROCEDURE. PT ESCORTED VIA WHEEL CHAIR FOR IMAGING.
--- NOTE | 2023-04-13 14:41 | NUR ---
DR QUINTANILLA CAME TO SEE PT WITH INSTRUCTIONS GIVEN FOR EGD TOMORROW, NPO EXCEPT WATER AT MN AND COMPLETE NPO AT 1300 TOMORROW. PT AND FAMILY AGREEABLE TO THIS PLAN.
--- NOTE | 2023-04-13 15:29 | NUR ---
IGNITION RISK: PT DENIES POSSESSION OF MATCHES, LIGHTERS OR CIGARRETTES AT THIS TIME.
[2023-04-13 15:43] VITALS: BP 93/73
--- NOTE | 2023-04-13 18:33 | NUR ---
SHIFT SUMMARY: PT HAD BOTH PORTIONS OF STRESS TEST COMPLETED TODAY AND WILL HAVE EGD PERFORMED TOMORROW FOR ESOPHAGEAL DILATION. DENIES CHEST PAIN THIS SHIFT. MEDICATED X1 WITH TYLENOL FOR HEADACHE. AT BEDSIDE. DENIES FURTHER NEEDS OR CONCERNS.
[2023-04-13 20:28] VITALS: BP 93/73
--- NOTE | 2023-04-13 23:49 | NUR ---
CALLED DR ADAMS ABOUT PT TELE CALLED AND STATED PT HAD ST ELEVATION TO V LEAD. PT DENIED LETTY SOB, NO CHEST PAIN NO ARM PAIN NO JAW PAIN. TELE ARTHUR ALSO STATED PT HAD ST ELEVATION YESTEDAY TO OTHER LEADS. PT HAD CHEMICAL STRESS TEST DONE YESTERDAY OF TODAY. STATED HE WOULD LOOK AT PTS CHART AND PUT ORDERS IN IF NEEDED.
[2023-04-14] VITALS (12 sets, daily range): BP systolic 81–130; BP diastolic 60–90
[2023-04-14 06:07] LABS: BASOPHILS ABSOLUTE AUTO 0.09 K/mm3 (0.00-0.23); BASOPHILS PERCENT AUTO 1 % (0-2); EOSINOPHILS ABSOLUTE AUTO 0.39 K/mm3 (0.00-0.68); EOSINOPHILS PERCENT AUTO 4 % (0-6); Hematocrit 46.7 % (37.0-53.0); Hemoglobin 15.3 g/dL (13.5-17.5); IMMATURE GRAN ABSOLUTE AUTO 0.03 K/mm3 (0.00-0.10); IMMATURE GRAN PERCENT AUTO 0 % (0-1); LYMPHOCYTES ABSOLUTE AUTO 1.92 K/mm3 (0.84-5.20); LYMPHOCYTES PERCENT AUTO 18 % (21-46); MONOCYTES ABSOLUTE AUTO 1.36 K/mm3 (0.16-1.47); MONOCYTES PERCENT AUTO 13 % (4-13); Mean Corpuscular HGB 30.1 pg (26.0-34.0); Mean Corpuscular HGB Conc 32.8 g/dL (31.5-36.5); Mean Corpuscular Volume 92 fL (80-100); Mean Platelet Volume 10.8 fL (9.1-12.4); NEUTROPHILS ABSOLUTE AUTO 6.79 K/mm3 (1.96-9.15); NEUTROPHILS PERCENT AUTO 64 % (41-73); Platelet Count 187 K/mm3 (150-400); RDW Coefficient Variation 16.1 % (11.7-14.2); RDW Standard Deviation 52.8 fL (35.1-46.3); Red Blood Cell Count 5.09 M/mm3 (4.30-5.90); White Blood Cell Count 10.58 K/mm3 (4.00-11.30)
[2023-04-14 06:31] LABS: Albumin, Blood 2.6 g/dL (3.4-5.0); Albumin/Globulin Ratio 0.7 (0.8-1.8); Bilirubin, Total 0.6 mg/dL (0.1-1.0); Bun/Creatinine Ratio 19.3 (12.0-20.0); Calcium, Blood 8.6 mg/dL (8.5-10.1); Creatinine, Blood 1.76 mg/dL (0.60-1.20); Globulin, Blood 3.7 g/dL (2.2-4.0); Potassium, Blood 4.3 mmol/L (3.5-5.5); Total Protein, Blood 6.3 g/dL (6.4-8.2)
--- NOTE | 2023-04-14 07:35 | NUR ---
ASSUMED CARE: PT RESTING QUIETLY IN BED, NSR WITH BBB ON TELE IN THE 70S. DENIES CHEST PAIN. ON 3L O2 FOR SOB. RESIDENTS AT BEDSIDE. PT AWARE THAT HE IS NPO EXCEPT MEDS AND WATER UNTIL 1PM. RESIDENTS MADE AWARE THAT PT'S WILL WANT RESULTS OF STRESS TEST. NO FURTHER NEEDS OR CONCERNS AT THIS TIME.
--- NOTE | 2023-04-14 14:38 | NUR ---
PT TAKEN TO DAY SURGERY VIA [facility]
--- NOTE | 2023-04-14 14:55 | NUR ---
History, Chart, Medications and Allergies reviewed before start of procedure. Lungs clear T/O to Auscultation. Patient confirms NPO status and agrees with scheduled surgery. Pre-Op teaching done. Pt verbalizes understanding.
--- NOTE | 2023-04-14 15:31 | NUR ---
04/14/23 1531 Katia Gomez SEE ANESTHESIA RECORD BY DR. CALDERÓN.
--- NOTE | 2023-04-14 16:38 | NUR ---
PT RETURNED FROM DAY SURGERY. TELE REAPPLIED. PT SLIGHTLY LETHARGIC BUT ROUSES EASILY. VSS. DENIES NEEDS OR CONCERNS.
--- NOTE | 2023-04-14 17:51 | NUR ---
SHIFT SUMMARY: PT HAS BEEN RESTING IN BED, NSR WITH BBB ON TELE AFTER PROCEDURE COMPLETED. DR MARQUEZ RECOMMENDED THEY DISCUSS ICD PLACEMENT WITH LOCAL COBOL DEVELOPER. NO ACUTE NEEDS OR CONCERNS IGNITION RISK: NO EVIDENCE OF CIGARRETTES, LIGHTERS OR MATCHES AT BEDSIDE THIS SHIFT FROM PT OR VISITOR.
[2023-04-15 00:32] VITALS: BP 87/62
--- NOTE | 2023-04-15 04:48 | NUR ---
SHIFT SUMMARY ADMITTED FOR CP. FULL CODE. PLAN IS FOR OUTPT CARDIOLOGY CONSULT. POSSIBLY [facility] CONSULT. HE IS NOT CURRENTLY ON HIS ELIQUIS DUE TO EGD DILATION/BIOPSY ON PREVIOUS SHIFT. DR. QUINTANILLA IS CONSULT. TELEMETRY: NSR @ 94 BPM. ACHS CBG'S. MECH SOFT/GRND MEAT DIET. HE STATES HIS BP IS NORMALLY LOW. HX OF LEFT ARM DVT, INTRACARDIAC THROMBUS, 3 FAILED ICD'S, 3 NH'S. FIRE SAFETY HAS BEEN ASSESSED AND DISCUSSED WITH THE PT.
[2023-04-15 05:19] VITALS: BP 84/63
[2023-04-15 07:29] VITALS: BP 102/80
[2023-04-15 12:00] VITALS: BP 99/79
[2023-04-15] MEDS ORDERED: TORSE20 PO (16:22)
--- NOTE | 2023-04-15 16:46 | NUR ---
DISCHARGE HOME DISCHARGE ORDERS FAXED TO [facility]. PT CALLED AND GOT A F/U APPOINTMENT WITH DR HOUGH. THEY WILL BE CALLING TO FOLLOW UP WITH [facility]/CARDIOLOGY. THEY ALSO WILL BE PICKING [facility] A [facility]. IT'S BEEN 2 YEARS SINCE HE USED A CPAP. IV REMOVED WITH CANNULA INTACT. PRESSURE DRESSING APPLIED. CONTINUE POC.
== END 2023-04-15 16:07 | disposition home or self-care (01) | DRG 391 ==
LOC: ER 11:57 → MEDS 15:20 → SURS 15:20 → MEDS 16:48
PROVIDERS: Emergency Medicine; Family Medicine; Internal Medicine Gastroenterology; ADMIT Internal Medicine
PROC: 0DB68ZX Excision of Stomach, Via Natural or Artificial Opening Endoscopic, Diagnostic (ICD-10-PCS; 2023-04-14)
PROC: 0DB18ZX Excision of Upper Esophagus, Via Natural or Artificial Opening Endoscopic, Diagnostic (ICD-10-PCS; 2023-04-14)
PROC: 0DB38ZX Excision of Lower Esophagus, Via Natural or Artificial Opening Endoscopic, Diagnostic (ICD-10-PCS; 2023-04-14)
PROC: 0DB98ZX Excision of Duodenum, Via Natural or Artificial Opening Endoscopic, Diagnostic (ICD-10-PCS; principal; 2023-04-14 15:30)
PROC: 0D758ZZ Dilation of Esophagus, Via Natural or Artificial Opening Endoscopic (ICD-10-PCS; 2023-04-14 15:30)
DX: R13.10 Dysphagia, unspecified (principal); I50.23 Acute on chronic systolic (congestive) heart failure; J96.01 Acute respiratory failure with hypoxia; I13.0 Hypertensive heart and chronic kidney disease with heart failure and stage 1 through stage 4 chronic kidney disease, or unspecified chronic kidney disease; I42.8 Other cardiomyopathies; J90 Pleural effusion, not elsewhere classified; R07.89 Other chest pain; R94.31 Abnormal electrocardiogram [ECG] [EKG]; R74.01 Elevation of levels of liver transaminase levels; G47.00 Insomnia, unspecified; K21.9 Gastro-esophageal reflux disease without esophagitis; M10.9 Gout, unspecified; K59.00 Constipation, unspecified; N18.30 Chronic kidney disease, stage 3 unspecified; R63.4 Abnormal weight loss; E03.9 Hypothyroidism, unspecified; I27.20 Pulmonary hypertension, unspecified; E11.22 Type 2 diabetes mellitus with diabetic chronic kidney disease; I25.10 Atherosclerotic heart disease of native coronary artery without angina pectoris; I44.7 Left bundle-branch block, unspecified; F32.A Depression, unspecified; Z87.891 Personal history of nicotine dependence; Z86.718 Personal history of other venous thrombosis and embolism; Z86.73 Personal history of transient ischemic attack (TIA), and cerebral infarction without residual deficits; Z88.8 Allergy status to other drugs, medicaments and biological substances; Z91.018 Allergy to other foods; Z87.19 Personal history of other diseases of the digestive system; Z86.16 Personal history of COVID-19; Z90.89 Acquired absence of other organs; Z90.49 Acquired absence of other specified parts of digestive tract; Z79.4 Long term (current) use of insulin; Z79.890 Hormone replacement therapy; Z68.28 Body mass index [BMI] 28.0-28.9, adult
CPT/HCPCS: 36415; 71045; 78452; 80053; 82947; 84484; 85025; 88305; 88342; 93005; 93010; 93017; 94760; 94761; 96374; 96375; 96376; 99285-25; A9270; A9500; C9113; G0378; J0706; J1815; J1940; J2704; J2785; J7120

== ENCOUNTER 2023-04-21 14:33 | Inpatient (IN) | payer OTHER ==
[~2023-04-21] VITALS: Ht 177.8 cm; Wt 89.7 kg
[~2023-04-21 14:33] MED LIST changes: +METO25ER PO; -METO50ER PO; +SOAANZ20 M3 PO
[2023-04-21 15:15] LABS: BASOPHILS ABSOLUTE AUTO 0.08 K/mm3 (0.00-0.23); BASOPHILS PERCENT AUTO 1 % (0-2); EOSINOPHILS ABSOLUTE AUTO 0.02 K/mm3 (0.00-0.68); EOSINOPHILS PERCENT AUTO 0 % (0-6); Hematocrit 44.3 % (37.0-53.0); Hemoglobin 14.6 g/dL (13.5-17.5); IMMATURE GRAN ABSOLUTE AUTO 0.02 K/mm3 (0.00-0.10); IMMATURE GRAN PERCENT AUTO 0 % (0-1); LYMPHOCYTES ABSOLUTE AUTO 1.37 K/mm3 (0.84-5.20); LYMPHOCYTES PERCENT AUTO 20 % (21-46); MONOCYTES ABSOLUTE AUTO 0.62 K/mm3 (0.16-1.47); MONOCYTES PERCENT AUTO 9 % (4-13); Mean Corpuscular HGB 29.9 pg (26.0-34.0); Mean Corpuscular Volume 91 fL (80-100); Mean Platelet Volume 10.5 fL (9.1-12.4); NEUTROPHILS ABSOLUTE AUTO 4.76 K/mm3 (1.96-9.15); NEUTROPHILS PERCENT AUTO 69 % (41-73); Platelet Count 209 K/mm3 (150-400); RDW Coefficient Variation 15.5 % (11.7-14.2); RDW Standard Deviation 51.8 fL (35.1-46.3); Red Blood Cell Count 4.89 M/mm3 (4.30-5.90); White Blood Cell Count 6.87 K/mm3 (4.00-11.30)
[2023-04-21 15:26] LABS: Albumin, Blood 2.9 g/dL (3.4-5.0); Albumin/Globulin Ratio 0.8 (0.8-1.8); Bilirubin, Total 0.8 mg/dL (0.1-1.0); Bun/Creatinine Ratio 14.3 (12.0-20.0); Creatinine, Blood 2.23 mg/dL (0.60-1.20); Globulin, Blood 3.6 g/dL (2.2-4.0); Potassium, Blood 3.7 mmol/L (3.5-5.5); Total Protein, Blood 6.5 g/dL (6.4-8.2)
[2023-04-21] MEDS ORDERED: HUMULIN R100 UNIT/2 SC (20:36)
[2023-04-21] MEDS ORDERED: ACET325 PO (20:37)
[2023-04-21] MEDS ORDERED: ATOR40TA PO (20:38)
[2023-04-21] MEDS ORDERED: SPIR25 PO (20:39)
[2023-04-21] MEDS ORDERED: LOSA25 PO (20:40)
[2023-04-21] MEDS ORDERED: ZOLP5 PO (20:41)
[2023-04-21] MEDS ORDERED: SODIUM SULFATE (20:45)
[2023-04-21] MEDS ORDERED: MAGNESIUM SULFATE (20:45)
[2023-04-21] MEDS ORDERED: POTASSIUM SULFATE (20:45)
[2023-04-21 21:06] VITALS: BP 108/82
[2023-04-21 21:10] VITALS: BP 105/83
--- NOTE | 2023-04-21 23:23 | NUR ---
ADMIT NOTE HANDOFF RECEIVED FROM COMMERCIAL PROJECT MANAGER CRISTAL. PT ARRIVED TO FLOOR VIA GURNEY. PT ORIENTED TO UNIT CALL BUTTON WITHIN REACH. HARVEST FIELD TICKETER IN PLACE. STANDING ACCURATE WEIGHT OBTAINED. ORTHOSTATIC VITALS OBTAINED. IV FLUIDS INFUSING ORDERED. CARDIAC CONSULT CALLED TO ANSWERING SERVICE. FIRE SAFETY AND IGNITION RISK HAS BEEN ASSESSED AND DISCUSSED WITH THIS PT.
[2023-04-22] VITALS (9 sets, daily range): BP systolic 95–107; BP diastolic 74–90
--- NOTE | 2023-04-22 04:09 | NUR ---
SHIFT SUMMARY ADMITTED FOR SYNCOPE. FULL CODE. PLAN IS FOR CARDIOLOGY CONSULT, CONSULT HAS BEEN CALLED. WE ARE DIURESING HIM. STRICT I&O'S. DAILY ACCURATE WEIGHTS. WE ARE MONITORING LABS. BNP ELEVATED AT 1467. TELEMETRY: NSR @ 87 BPM. ACHS CBG'S, LOW SS. A&O X4. 1 ASSIST - BRP. CARDIAC DIET.
[2023-04-22 04:59] LABS: BASOPHILS ABSOLUTE AUTO 0.08 K/mm3 (0.00-0.23); BASOPHILS PERCENT AUTO 1 % (0-2); EOSINOPHILS ABSOLUTE AUTO 0.08 K/mm3 (0.00-0.68); EOSINOPHILS PERCENT AUTO 1 % (0-6); Hematocrit 48.1 % (37.0-53.0); Hemoglobin 15.9 g/dL (13.5-17.5); IMMATURE GRAN ABSOLUTE AUTO 0.03 K/mm3 (0.00-0.10); IMMATURE GRAN PERCENT AUTO 0 % (0-1); LYMPHOCYTES PERCENT AUTO 23 % (21-46); MONOCYTES ABSOLUTE AUTO 0.97 K/mm3 (0.16-1.47); MONOCYTES PERCENT AUTO 10 % (4-13); Mean Corpuscular HGB 29.6 pg (26.0-34.0); Mean Corpuscular HGB Conc 33.1 g/dL (31.5-36.5); Mean Corpuscular Volume 90 fL (80-100); Mean Platelet Volume 10.9 fL (9.1-12.4); NEUTROPHILS PERCENT AUTO 66 % (41-73); Platelet Count 259 K/mm3 (150-400); RDW Coefficient Variation 15.7 % (11.7-14.2); RDW Standard Deviation 51.1 fL (35.1-46.3); Red Blood Cell Count 5.37 M/mm3 (4.30-5.90); White Blood Cell Count 9.76 K/mm3 (4.00-11.30)
[2023-04-22 05:37] LABS: Albumin, Blood 2.8 g/dL (3.4-5.0); Albumin/Globulin Ratio 0.7 (0.8-1.8); Bilirubin, Total 0.7 mg/dL (0.1-1.0); Bun/Creatinine Ratio 17.6 (12.0-20.0); Calcium, Blood 8.9 mg/dL (8.5-10.1); Creatinine, Blood 2.22 mg/dL (0.60-1.20); Globulin, Blood 3.8 g/dL (2.2-4.0); Potassium, Blood 4.5 mmol/L (3.5-5.5); Total Protein, Blood 6.6 g/dL (6.4-8.2)
--- NOTE | 2023-04-22 06:32 | NUR ---
CALLED HOSPITALIST TELEMETRY REPORTS 6 SECOND RUN OF SVT, THEN A RETURN TO HIS NORMAL. PT HAD NO S/SX ASSOCIATED WITH THIS. REPORTED THIS TO ENDOSCOPY TECHNICIAN. VITAL SIGNS ARE WITHIN NORMAL LIMITS. I CALLED HOSPITALIST AND INFORMED HIM. NO NEW ORDERS AT THIS TIME.
--- NOTE | 2023-04-22 18:15 | NUR ---
SHIFT SUMMARY PT A&OX4 AND PLEASANT. PT ON 2L OF OXYGEN BUT STILL C/O OF FEELING VERY SOB. PT IS BEING DIURESED. DURING MORNING ASSESSMENT, 1+ EDEMA NOTED IN BLE BUT IN AFTERNOON, NO EDEMA WAS NOTED IN LOWER EXTREMITIES. PT UP IN CHAIR T/O DAY TO HELP WITH EASE OF BREATHING. PT C/O PAIN AND NAUSEA ONCE TODAY AND WAS MEDICATED PER EMAR WITH GOOD EFFECT. PT ABLE TO HAVE A COUPLE SMALL BM'S. AT BEDSIDE MOST OF THE DAY. PT'S BP WAS SOFT IN THE AM AND ALDACTONE WAS HELD PER DR ORDER. PT UP TO CHAIR AND CALL LIGHT IN REACH.
--- NOTE | 2023-04-22 22:20 | NUR ---
CALL [facility] Email Data Source NOTIFIED ME OF 7 BEAT RUN OF VTACH. PT RESTING IN BED. DR DAVIS WAS NOTIFIED AT THE TIME AND NO NEW ORDERS. PT ON 2L N/C WITH HOME CPAP ON CONTINUOUS PULSE OX NOW IN THE 90S. ORIGINALLY SET UP WITH NO OXYGEN AND PT DESATTED TO LOW 80S WHEN SLEEPING, UP TO 90 WITH DEEP BREATH. RT CHANGED SET UP TO INCLUDE N/C.
[2023-04-23] VITALS (8 sets, daily range): BP systolic 91–99; BP diastolic 76–82
--- NOTE | 2023-04-23 03:07 | NUR ---
MR PERSON WALKED IN TO THE BATHROOM, SLIPPED TO THE FLOOR, SCRAPED HIS LEFT KNEE. DENIES HITTING HIS HEAD, DENIED LOC. GRAPHIC ARTS TECHNICIAN WALKED PT BACK TO THE CHAIR. VITAL SIGNS DONE. CHARGE NURSE AWARE. CHAIR ALARM ON. DR DEE CALLED AND NOTIFIED. NO NEW ORDERS AT THIS TIME. MR PERSON WAS REMINDED TO PLEASE CALL FOR ANY NEEDS. CALL LIGHT IN EASY REACH.
--- NOTE | 2023-04-23 04:59 | NUR ---
SHIFT SUMMARY MR RAMACHANDRAN TOLERATED CPAP FOR LESS THAN AN HOUR LAST EVENING. HE HAS BEEN ON 2L N/C ON CONTINUOUS PULSE OXIMETER, REQUIRING OCCASIONAL REMINDING TO TAKE A DEEP BREATH TO KEEP SATS IN THE 90S. ON TELEMETRY SR WITH 7 BEATS OF VTACH CALLED BY TELLER MANAGER AT 1954 AND NO FURTHER CALLS FROM TELLER MANAGER. HE HAS BEEN MORE COMFORTABLE SITTING UPRIGHT IN RECLINER. DENIED ANY PAIN. SOB ON EXERTION. CHAIR ALARM ON, CALL LIGHT IN REACH. REMINDED NOT TO GET UP WITHOUT ASSISTANCE. PT VERBALISED UNDERSTANDING.
[2023-04-23 05:10] LABS: Albumin, Blood 3.1 g/dL (3.4-5.0); Albumin/Globulin Ratio 0.8 (0.8-1.8); Bilirubin, Total 0.9 mg/dL (0.1-1.0); Bun/Creatinine Ratio 17.9 (12.0-20.0); Calcium, Blood 9.1 mg/dL (8.5-10.1); Creatinine, Blood 2.57 mg/dL (0.60-1.20); Globulin, Blood 4.1 g/dL (2.2-4.0); Potassium, Blood 4.3 mmol/L (3.5-5.5); Total Protein, Blood 7.2 g/dL (6.4-8.2)
--- NOTE | 2023-04-23 16:28 | NUR ---
ORDERS GIVEN TO TRANSFER PT TO PCU. CALLED AND GAVE REPORT TO RECIEVING NURSEADDISON. PT AND NOTIFIED OF TRANSFER AND EXPLAINED THE REASON AND ANSWERED ALL QUESTIONS. BELONGINGS AND MEDICATIONS PACKED UP AND SENT WITH PT. PT TAKEN BY BED.
--- NOTE | 2023-04-23 16:34 | NUR ---
PT A&OX4 AND PLEASANT. PT APPEARS EXHAUSTED AND STATES HE WAS UNABLE TO SLEEP MUCH LAST NIGHT. PT VEBALIZED FEELING SOB AND THAT HE HAS TO "WORK HARDER" TO BREATH. CONTINIOUS PULSE OX SHOWS THAT PT IS SATING IN THE HIGH 90'S ON 2L OF OXYGEN. PT DOES DESAT WHEN HE FALLS ASLEEP. NO C/O PAIN. BP REMAINS SOFT. PT USING URINAL INDPENDENTLY AND URINE OUTPUT IS INCREASING. ABLE TO PASS MEDIUM BM TODAY. PT UNSTEADY ON FEET AND VERALIZED FEELING DIZZY. AT BEDSIDE. SHIP RIGGER, DR WRIGHT, IN TO SEE PT. PT TRANSFERED TO PCU AT ABOUT 1430. REPORT GIVEN TO RECIEVING NURSE.
--- NOTE | 2023-04-23 18:28 | NUR ---
Walked into bathroom with gait belt, staff supervision. is in the room, can see the patient. Pt was instructed to call by pulling the cord before getting up. He verbalized understanding.
--- NOTE | 2023-04-23 18:51 | NUR ---
Pt called by pulling cord in bathroom, as requested. Walked to sink outside of room to wash his hands. C/o of feeling lightheaded afterwards. spo2 100% on room air. Sat down on bed, and recovery was quick. Lying on his left side at this time, talking on the phone. Christine at bedside. Bed alarm is on.
--- NOTE | 2023-04-23 18:55 | NUR ---
WEARING CPAP, WITH O2 BLEED IN.
--- NOTE | 2023-04-23 21:12 | NUR ---
SAFETY & EDUCATION PT & FAMILY EDUCATED RE: IGNITION SOURCES AND RISK OF INJURY WHILE OXYGEN IS IN USE. PT DENIES SMOKING & PT AND FAMILY VERBALIZE UNDERSTANDING.
[2023-04-24 03:11] VITALS: BP 91/73
--- NOTE | 2023-04-24 04:40 | NUR ---
SHIFT SUMMARY SEE PREVIOUS NOTE. PT A&Ox4, CALLS AND COMMUNICATES NEEDS APPROPRIATELY. BED ALARM ON. BP SOFT WITH SBP 90's, MAP> 65, AYSMPTOMATIC. SINUS 70's, DENIES CP/PRESSURE. SpO2> 92% RA WHILE AWAKE, CPAP w/ 2L BLEED IN WHILE ASLEEP. PT REPORTED INTERMITTENT SOB. CONTINENT OF URINE AND BOWEL. PT NPO AT 0000. NO OTHER EVENTS, WILL REPORT TO ONCOMING RN.
[2023-04-24 05:16] LABS: BASOPHILS ABSOLUTE AUTO 0.09 K/mm3 (0.00-0.23); BASOPHILS PERCENT AUTO 1 % (0-2); EOSINOPHILS ABSOLUTE AUTO 0.15 K/mm3 (0.00-0.68); EOSINOPHILS PERCENT AUTO 2 % (0-6); Hematocrit 47.1 % (37.0-53.0); Hemoglobin 15.8 g/dL (13.5-17.5); IMMATURE GRAN ABSOLUTE AUTO 0.02 K/mm3 (0.00-0.10); IMMATURE GRAN PERCENT AUTO 0 % (0-1); LYMPHOCYTES ABSOLUTE AUTO 2.61 K/mm3 (0.84-5.20); LYMPHOCYTES PERCENT AUTO 32 % (21-46); MONOCYTES ABSOLUTE AUTO 0.93 K/mm3 (0.16-1.47); MONOCYTES PERCENT AUTO 11 % (4-13); Mean Corpuscular HGB 29.8 pg (26.0-34.0); Mean Corpuscular HGB Conc 33.5 g/dL (31.5-36.5); Mean Corpuscular Volume 89 fL (80-100); Mean Platelet Volume 10.9 fL (9.1-12.4); NEUTROPHILS ABSOLUTE AUTO 4.35 K/mm3 (1.96-9.15); NEUTROPHILS PERCENT AUTO 54 % (41-73); Platelet Count 267 K/mm3 (150-400); RDW Coefficient Variation 16.2 % (11.7-14.2); RDW Standard Deviation 49.4 fL (35.1-46.3); White Blood Cell Count 8.15 K/mm3 (4.00-11.30)
[2023-04-24 05:41] LABS: Albumin, Blood 2.8 g/dL (3.4-5.0); Albumin/Globulin Ratio 0.8 (0.8-1.8); Bilirubin, Total 0.8 mg/dL (0.1-1.0); Bun/Creatinine Ratio 21.1 (12.0-20.0); Calcium, Blood 8.7 mg/dL (8.5-10.1); Creatinine, Blood 2.47 mg/dL (0.60-1.20); Globulin, Blood 3.6 g/dL (2.2-4.0); Potassium, Blood 3.8 mmol/L (3.5-5.5); Total Protein, Blood 6.4 g/dL (6.4-8.2)
[2023-04-24 08:10] VITALS: BP 106/85
--- NOTE | 2023-04-24 08:21 | NUR ---
Pt was asleep when I came into the room Noted vital signs are stable. Awakens easily, stood at the bedside to use the urinal. Voided 300 cc. Pt is awake, alert, and talking with Dr. Quezada at this time.
--- NOTE | 2023-04-24 11:26 | NUR ---
Dr. Regan was here, discussed in detail with the patient hx of ICD placements and causes for removal. The pt will not be getting a device placement.
[2023-04-24 15:10] VITALS: BP 103/85
[2023-04-24 20:24] VITALS: BP 95/81
[2023-04-24 23:53] VITALS: BP 93/73
[2023-04-25 03:52] VITALS: BP 98/77
--- NOTE | 2023-04-25 05:01 | NUR ---
SHIFT SUMMARY SEE PREVIOUS NOTE. PT A&Ox4, CALLS AND COMMUNICATES NEEDS APPROPRIATELY. BED ALARM ON. BP SOFT WITH SBP 90's, MAP> 65, AYSMPTOMATIC. SINUS 70's, DENIES CP/PRESSURE. SpO2> 92% RA WHILE AWAKE, CPAP w/ 2L BLEED IN WHILE ASLEEP. PT REPORTED INTERMITTENT SOB. CONTINENT OF URINE AND BOWEL. NO OTHER EVENTS, WILL REPORT TO ONCOMING RN.
[2023-04-25 07:55] VITALS: BP 103/78
[2023-04-25 10:16] LABS: Albumin, Blood 2.9 g/dL (3.4-5.0); Albumin/Globulin Ratio 0.8 (0.8-1.8); Bilirubin, Total 1.1 mg/dL (0.1-1.0); Calcium, Blood 8.9 mg/dL (8.5-10.1); Creatinine, Blood 2.35 mg/dL (0.60-1.20); Globulin, Blood 3.7 g/dL (2.2-4.0); Total Protein, Blood 6.6 g/dL (6.4-8.2)
[2023-04-25 12:24] VITALS: BP 104/77
--- NOTE | 2023-04-25 15:34 | NUR ---
Pt resting in bed upon arrival. Pt is A&OX4 and denies pain at this time. He reports his dyspnea has significantly improved since being admitted. Pt reports 7/7 nausea and Primary RN Cecil in to offer anti nausea medication. Pt's spouse Coreen at bedside. Pt also reports anxiety due to his health. He starting to process things and "things are starting to sink in". Assessed Pt's understanding of his current health. Educated on disease process including trajectory. Discussed the importance of planning for the future. Educated on the importance of diet and life style change. Offered some suggestions and offered therapeutic listening. Pt and spouse appear to struggle with understanding and insight as Pt complained about the amount of salad dressing he received. Continued therapeutic listening. Ended visit. Spoke with Primary RN Even and discussed case. Palliative Care will remain available
[2023-04-25 16:04] VITALS: BP 97/79
--- NOTE | 2023-04-25 18:09 | NUR ---
SHIFT SUMMARY ALERT, ORIENTED, COOPERATIVE, FATIGUED. DR ROSALES STATES WE ARE TO CONTINUE DIURESING. PATIENT AND SIGNIFICANT OTHER MET WITH PALLIATIVE CARE THIS SHIFT. SBA TO BATHROOM, PATIENT REPORTS SYMPTOMS OF WEAKNESS AND LIGHT-HEADEDNESS WHEN AMBULATING IMPROVED. TOLERATING ADA/RENAL DIET AND LIQUIDS. VOIDING WELL. SR ON TELE. BLOOD GLUCOSE COVERED PER SLIDING SCALE.
[2023-04-25 20:22] VITALS: BP 98/74
[2023-04-25 23:31] VITALS: BP 98/70
[2023-04-26 04:17] VITALS: BP 91/75
[2023-04-26 04:27] LABS: Albumin, Blood 2.8 g/dL (3.4-5.0); Albumin/Globulin Ratio 0.8 (0.8-1.8); Bilirubin, Total 0.7 mg/dL (0.1-1.0); Bun/Creatinine Ratio 22.9 (12.0-20.0); Calcium, Blood 8.3 mg/dL (8.5-10.1); Creatinine, Blood 2.36 mg/dL (0.60-1.20); Globulin, Blood 3.3 g/dL (2.2-4.0); Potassium, Blood 3.7 mmol/L (3.5-5.5); Total Protein, Blood 6.1 g/dL (6.4-8.2)
--- NOTE | 2023-04-26 04:48 | NUR ---
SHIFT SUMMARY SEE PREVIOUS NOTE. PT A&Ox4, CALLS AND COMMUNICATES NEEDS APPROPRIATELY. BED ALARM ON. BP SOFT WITH SBP 90's, MAP> 65, AYSMPTOMATIC. SINUS 70's, DENIES CP/PRESSURE. SpO2> 92% RA WHILE AWAKE, CPAP w/ 2L BLEED IN WHILE ASLEEP. PT REPORTED INTERMITTENT SOB, THOUGH FEELS THAT IT IS IMPROVING. CONTINENT OF URINE AND BOWEL. NO OTHER EVENTS, WILL REPORT TO ONCOMING RN.
[2023-04-26 07:24] VITALS: BP 95/74
[2023-04-26 11:24] VITALS: BP 102/78
[2023-04-26 15:33] VITALS: BP 91/80
--- NOTE | 2023-04-26 16:00 | NUR ---
PT SUMMARY/TRANSFER NOTE: PT TRANSITIONED TO MEDICAL STATUS WITH NO TELE. PT HAS BEEN ALERT AND ORIENTED X4, ABLE TO MAKE NEEDS KNOWN. AT THE BEDSIDE MOST OF THE SHIFT. VITALS HRR SR/ST 70-100'S WITH BBB, SATS >95% ON RA, SBP SOFT >90 MAP >65, AFEBRILE. PT DENIES CHEST PAIN/DIZZINESS GETS SOB WITH EXERTION, PT HAD A SHOWER THIS MORNING WAS LITTLE WINDED GOING BACK TO BED OTHER LAM VITALS WERE STABLE, THEN PT WORKED WITH PHYSICAL THERAPIST AFTER LUNCH TIME PT STARTED C/O FATIGUE AND SOB, VITALS REMAINED STABLE PT SLEPT TIL EARLY AFTERNOON WITH CPAP ON 2L O2 BLEED. PT WAS EDUCATED ON TAKING IT EASY FAR MOBILITY, STILL AGGRESSIVELY DIURESING 80MG IV LASIX BID HAD 900MLS URINE OUTPUT FOR THE SHIFT, COMPLIANT ON FLUID RESTRICTION. NO OTHER ISSUES REPORTED PRIOR TO TRANSFER, ALL BELONGINGS SENT WITH THE PT, ACCOMPANIED VIA BED FOR TRANSFER, REPORT GIVEN TO JORGE BOSTON. PT WAS EDUCATED OF IGNITION RISK, FIRE PREVENTION AND SMOKE HAZARDS. PT VERBALIZED UNDERSTANDING.
--- NOTE | 2023-04-26 16:33 | NUR ---
Received PCU transfer to room 330 awake and alert X3. Denies pain. Resp even nonlabored on RA. Cpap with sleep. Oriented to room and call light. Will monitor this shift.
[2023-04-26 19:25] VITALS: BP 103/81
[2023-04-27 03:08] VITALS: BP 99/72
--- NOTE | 2023-04-27 03:34 | NUR ---
PT EDUCATED ON [facility] FIRE SAFETY IGNITION SOURCES/EXPLOSIVES NON SMOKING POLICY AND VERBALIZED UNDERSTANDING OF EDUCATION.
--- NOTE | 2023-04-27 04:08 | NUR ---
SHIFT SUMMARY NOC PT A/O X 4. PLEASANT AND COOPERATIVE WITH CARE. NO ACUTE CHANGES TO REPORT. ON TELE RUNNING NSR @ 73 BPM. STILL ON CPAP 2L BLEED IN FOR SLEEPING, PT INDEPENDENT WITH CPAP USE. PT REPORTS DYSPNEA WHEN AMBULATING TO BATHROOM 2 PERSON SBA UTILIZED. PT IS CURRENTLY RESTING WITH BED IN LOWEST POSITION, AND CALL LIGHT WITHIN REACH.
[2023-04-27 05:24] LABS: BASOPHILS ABSOLUTE AUTO 0.07 K/mm3 (0.00-0.23); BASOPHILS PERCENT AUTO 1 % (0-2); EOSINOPHILS ABSOLUTE AUTO 0.19 K/mm3 (0.00-0.68); EOSINOPHILS PERCENT AUTO 3 % (0-6); Hematocrit 46.2 % (37.0-53.0); Hemoglobin 15.3 g/dL (13.5-17.5); IMMATURE GRAN ABSOLUTE AUTO 0.02 K/mm3 (0.00-0.10); IMMATURE GRAN PERCENT AUTO 0 % (0-1); LYMPHOCYTES ABSOLUTE AUTO 1.81 K/mm3 (0.84-5.20); LYMPHOCYTES PERCENT AUTO 23 % (21-46); MONOCYTES ABSOLUTE AUTO 0.95 K/mm3 (0.16-1.47); MONOCYTES PERCENT AUTO 12 % (4-13); Mean Corpuscular HGB 30.1 pg (26.0-34.0); Mean Corpuscular HGB Conc 33.1 g/dL (31.5-36.5); Mean Corpuscular Volume 91 fL (80-100); Mean Platelet Volume 10.7 fL (9.1-12.4); NEUTROPHILS ABSOLUTE AUTO 4.69 K/mm3 (1.96-9.15); NEUTROPHILS PERCENT AUTO 61 % (41-73); Platelet Count 273 K/mm3 (150-400); RDW Coefficient Variation 17.3 % (11.7-14.2); Red Blood Cell Count 5.08 M/mm3 (4.30-5.90); White Blood Cell Count 7.73 K/mm3 (4.00-11.30)
[2023-04-27 06:08] LABS: Albumin, Blood 2.8 g/dL (3.4-5.0); Albumin/Globulin Ratio 0.8 (0.8-1.8); Bilirubin, Total 0.6 mg/dL (0.1-1.0); Bun/Creatinine Ratio 20.7 (12.0-20.0); Calcium, Blood 8.6 mg/dL (8.5-10.1); Creatinine, Blood 2.41 mg/dL (0.60-1.20); Globulin, Blood 3.5 g/dL (2.2-4.0); Potassium, Blood 3.5 mmol/L (3.5-5.5); Total Protein, Blood 6.3 g/dL (6.4-8.2)
[2023-04-27 08:11] VITALS: BP 100/76
[2023-04-27 15:12] VITALS: BP 97/72
--- NOTE | 2023-04-27 16:49 | NUR ---
SHIFT SUMMARY: Pt remains A&O x3 this shift. VSS. Denies pain. Up in chair this am. Resp even nonlabored on RA. Cpap with sleep. Crackles to BLL. Fluid restriction 1500ml/day in place. Urinal for output measurements.
[2023-04-27 21:11] VITALS: BP 106/83
[2023-04-28 04:08] VITALS: BP 105/79
--- NOTE | 2023-04-28 04:54 | NUR ---
SHIFT SUMMARY PT ORIENTED & COOPERATIVE T/O SHIFT. IND WITH URINAL IN ROOM. NO ALERTS FROM TELE THIS SHIFT. PT DENIES PAIN T/O SHIFT. PT STAYED UP TILL APPROX 2200 AND THEN HAS BEEN QUEIT AND RESTING IN BED SINCE. RESPIRATIONS EVEN AND UNLABORED. VS REVIEWED. NO ACUTE CHANGES IN ASSESSMENT AT THIS TIME. CALL LIGHT IN REACH.
[2023-04-28 07:15] LABS: Albumin/Globulin Ratio 0.8 (0.8-1.8); Bilirubin, Total 0.6 mg/dL (0.1-1.0); Bun/Creatinine Ratio 20.9 (12.0-20.0); Calcium, Blood 8.8 mg/dL (8.5-10.1); Creatinine, Blood 2.2 mg/dL (0.60-1.20); Globulin, Blood 3.8 g/dL (2.2-4.0); Potassium, Blood 3.5 mmol/L (3.5-5.5); Total Protein, Blood 6.8 g/dL (6.4-8.2)
[2023-04-28 07:56] VITALS: BP 102/84
[2023-04-28 13:34] LABS: Bun/Creatinine Ratio 22.5 (12.0-20.0); Calcium, Blood 8.8 mg/dL (8.5-10.1); Potassium, Blood 3.7 mmol/L (3.5-5.5)
--- NOTE | 2023-04-28 17:27 | NUR ---
SHIFT SUMMARY- VSS. FAMILY AT BEDSIDE. NO O2. A&O X4. NO CHEST PAIN NOTED THIS SHIFT. NO TELE EVENTS NOTED THIS SHIFT. PT AWAITING D/C. WILL CONTINUE TO MONITOR. CALL LIGHT IN REACH.
[2023-04-28] MEDS ORDERED: TORSE20 PO (17:32)
[2023-04-28] MEDS ORDERED: LEVSOD137 PO (17:32)
== END 2023-04-28 18:17 | disposition home or self-care (01) | DRG 637 ==
LOC: ER 14:33 → MEDS 14:34 → PCU 04-22 09:50 → MEDS 04-22 09:50 → PCU 04-23 14:37 → MEDS 04-26 16:23
PROVIDERS: Emergency Medicine; Family Medicine; Internal Medicine Cardiovascular Disease; ADMIT Internal Medicine
PROC: 5A09357 Assistance with Respiratory Ventilation, Less than 24 Consecutive Hours, Continuous Positive Airway Pressure (ICD-10-PCS; principal; 2023-04-21)
DX: E11.649 Type 2 diabetes mellitus with hypoglycemia without coma (principal); I50.43 Acute on chronic combined systolic (congestive) and diastolic (congestive) heart failure; J96.00 Acute respiratory failure, unspecified whether with hypoxia or hypercapnia; I13.0 Hypertensive heart and chronic kidney disease with heart failure and stage 1 through stage 4 chronic kidney disease, or unspecified chronic kidney disease; I42.8 Other cardiomyopathies; I47.20 Ventricular tachycardia, unspecified; R55 Syncope and collapse; N17.9 Acute kidney failure, unspecified; N18.4 Chronic kidney disease, stage 4 (severe); Z51.5 Encounter for palliative care; I25.10 Atherosclerotic heart disease of native coronary artery without angina pectoris; E03.9 Hypothyroidism, unspecified; K21.9 Gastro-esophageal reflux disease without esophagitis; M10.9 Gout, unspecified; I44.7 Left bundle-branch block, unspecified; F32.A Depression, unspecified; E11.22 Type 2 diabetes mellitus with diabetic chronic kidney disease; I34.0 Nonrheumatic mitral (valve) insufficiency; K59.00 Constipation, unspecified; G47.33 Obstructive sleep apnea (adult) (pediatric); Z95.0 Presence of cardiac pacemaker; I25.2 Old myocardial infarction; Z86.73 Personal history of transient ischemic attack (TIA), and cerebral infarction without residual deficits; Z79.4 Long term (current) use of insulin; Z88.8 Allergy status to other drugs, medicaments and biological substances; Z79.899 Other long term (current) drug therapy; Z79.890 Hormone replacement therapy; Z90.49 Acquired absence of other specified parts of digestive tract; Z90.89 Acquired absence of other organs; Z98.890 Other specified postprocedural states; Z87.891 Personal history of nicotine dependence; Z91.148 Patient's other noncompliance with medication regimen for other reason; Z86.718 Personal history of other venous thrombosis and embolism
CPT/HCPCS: 36415; 71045; 71046; 80048; 80053; 82947; 82977; 83036; 83880; 84443; 84484; 85025; 93005; 93010; 94660; 94762; 96372; 96374; 96376; 97116; 97162; 97530; 99285-25; A9270; C9113; G0378; J1650; J1940; J7070

== ENCOUNTER 2023-05-01 13:13 | Inpatient (IN) | payer OTHER ==
[~2023-05-01] VITALS: Ht 177.8 cm; Wt 90.6 kg
[~2023-05-01 13:13] MED LIST changes: +ACET325 PO; -CYMBALTA30 M1 PO; +Cymbalta20 MG PO; +HUMULIN R100 UNIT/2 SC; +LEVSOD137 PO; +MAGNESIUM SULFATE; +POTASSIUM SULFATE; +SODIUM SULFATE; +ZOLP5 PO
[2023-05-01] MEDS ORDERED: JARDIANCE10 MG PO (14:39)
[2023-05-01] MEDS ORDERED: INSULANI (14:39)
[2023-05-01] MEDS ORDERED: INSULANI SC (14:40)
[2023-05-01 15:04] LABS: Source, Urine Clean Catch
[2023-05-01 15:07] LABS: BASOPHILS ABSOLUTE AUTO 0.08 K/mm3 (0.00-0.23); BASOPHILS PERCENT AUTO 1 % (0-2); EOSINOPHILS ABSOLUTE AUTO 0.05 K/mm3 (0.00-0.68); EOSINOPHILS PERCENT AUTO 1 % (0-6); Hematocrit 47.1 % (37.0-53.0); Hemoglobin 15.5 g/dL (13.5-17.5); IMMATURE GRAN ABSOLUTE AUTO 0.03 K/mm3 (0.00-0.10); IMMATURE GRAN PERCENT AUTO 0 % (0-1); LYMPHOCYTES ABSOLUTE AUTO 1.55 K/mm3 (0.84-5.20); LYMPHOCYTES PERCENT AUTO 17 % (21-46); MONOCYTES ABSOLUTE AUTO 0.96 K/mm3 (0.16-1.47); MONOCYTES PERCENT AUTO 11 % (4-13); Mean Corpuscular HGB 29.8 pg (26.0-34.0); Mean Corpuscular HGB Conc 32.9 g/dL (31.5-36.5); Mean Corpuscular Volume 90 fL (80-100); Mean Platelet Volume 11.2 fL (9.1-12.4); NEUTROPHILS ABSOLUTE AUTO 6.34 K/mm3 (1.96-9.15); NEUTROPHILS PERCENT AUTO 70 % (41-73); Platelet Count 262 K/mm3 (150-400); RDW Coefficient Variation 17.2 % (11.7-14.2); RDW Standard Deviation 52.1 fL (35.1-46.3); Red Blood Cell Count 5.21 M/mm3 (4.30-5.90); White Blood Cell Count 9.01 K/mm3 (4.00-11.30)
[2023-05-01 15:21] LABS: Salicylate <1.7 mg/dL (2.8-20.0)
[2023-05-01 15:21] LABS: Appearance, Urine Clear (Clear); Bilirubin, Urine Neg (Neg); Blood, Urine Neg (Neg); Color, Urine Yellow (P-Yellow); Glucose Qualitative, Urine 4+ (Neg); Ketones, Urine Neg (Neg); Leukocyte Esterase, Urine Neg (Neg); Nitrite, Urine Neg (Neg); Protein, Urine Neg (Neg); Urobilinogen, Urine NORM (Normal)
[2023-05-01 15:35] LABS: Acetaminophen, Random <2.0 ug/mL (10.0-30.0); Alanine Aminotransfer (ALT/SGP 59 U/L (12-78); Albumin, Blood 3.3 g/dL (3.4-5.0); Albumin/Globulin Ratio 0.8 (0.8-1.8); Alk Phos 180 U/L (50-136); Anion Gap 5 mmol/L (6-16); Aspartate Aminotrans (AST/SGOT 33 U/L (12-37); Bilirubin, Total 1.1 mg/dL (0.1-1.0); Blood Urea Nitrogen 43 mg/dL (8-24); CO2, Blood 29 mmol/L (21-32); Calcium, Blood 9.3 mg/dL (8.5-10.1); Chloride, Blood 104 mmol/L (98-108); Creatinine, Blood 2.15 mg/dL (0.60-1.20); Ethanol (Alcohol), Blood, Med 7 mg/dL; Globulin, Blood 3.9 g/dL (2.2-4.0); Glomerular Filtration Rate 33 (60-); Glucose, Blood 236 mg/dL (70-99); Potassium, Blood 4.8 mmol/L (3.5-5.5); Sodium, Blood 138 mmol/L (136-145); Total Protein, Blood 7.2 g/dL (6.4-8.2)
[2023-05-01 16:36] LABS: U Amphetamine Screen Not Detected; U Barbituate Screen Not Detected; U Benzodiazapine Screen Not Detected; U Buprenorphine Screen Not Detected; U Cannabinoids Screen Not Detected; U Cocaine Screen Not Detected; U Methadone Screen Not Detected; U Methamphetamine Screen Not Detected; U Opiates Screen Not Detected; U Oxycodone Screen Not Detected; U Phencyclidine Screen Not Detected; U Propoxyphene Screen Not Detected
[2023-05-02] MEDS ORDERED: ELIQUIS5 M2 PO (18:42)
--- NOTE | 2023-05-02 19:48 | NUR ---
TRANSFER UPDATE REPORT RECIEVED FROM ED RN AT 1723. PT ARRIVED TO PCU AT 1743 VIA GURNEY AND ON 2L NC. PT INITIALLY ARRIVED TO PCU ROOM 6, PT MOVED TO PCU 8 FOR MORE SECURE SUICIDE RISK ROOM. PT ABLE TOP TRANSFER SELF TO AND FROM GURNEY AND BED ON HIS OWN, TOLERATED WELL. PT A/OX4 AND COOPERATIVE. PT REPORTED SOB AFTER AMBULATING TO TOILET UNDER SUPERVISION. SOB SUBSIDED AFTER BRIEF PERIOD OF REST AT EDGE OF BED. PT ASSESSED FOR SUICIDE RISK, PT REPORTS "I DON'T FEEL TOO BAD RIGHT NOW. JUST SOME THOUGHTS HERE AND THERE." PT REPORTED THAT "A GUN WOULD BE MT INITIAL CHOICE, BUT I GUESS I COULD STEP IN FRONT OF A SEMI" WHEN ASKED IF HE HAD ANY PLANNED WAY OF SUICIDE. PT AGREEABLE WITH STAFF OF NO ATTEMPTS. PT AND ASSESSED FOR IGNITION RISK DEVICES, NONE REPORTED.
[2023-05-02 19:53] VITALS: BP 108/89
--- NOTE | 2023-05-02 19:55 | NUR ---
ORTHOSTATIC: NO SIGNIFICANT CHANGE IN ORTHOSTATIC PRESSURES, HOWEVER, PATIENT WITH STANDING, AND MILD MOVEMENT, HAD SOME DIZZINESS, LIGHTHEADED, WAS SEEING STARS, WAS STOPPED FOR STAFF AND PATIENT SAFETY PROFESSIONAL MODEL INFORMED. WILL CONTINUE TO MONITOR.
--- NOTE | 2023-05-02 20:11 | NUR ---
ASSUMPTION OF CARE: PATIENT IS A/0X4 WITHDRAWN FLAT AND DEPRESSED, HE IS MORE CONCERNS ABOUT SI AND GETTING SOMETHING TO "KNOCK HIM OUT FOR THE NIGHT" THEN HIS SYNCOPAL EPISODE IN THE ED AND PRESYNCOPAL EPISODE WITH ORTHOSTATIC BLOOD PRESSURES NOW. PATIENT WAS VERY DYSPNIC AND WAS SEEING STARS, IS CURRENTLY RESTING, NO LONGER SOB. DENIES CHEST PAIN. VSS, CONTINUOUS PULSE OX IN PLACE, AND SITTER IN THE ROOM.
[2023-05-02 22:54] VITALS: BP 98/80
[2023-05-02 22:56] VITALS: BP 98/80
[2023-05-03 03:45] VITALS: BP 100/78
[2023-05-03 04:23] LABS: Hematocrit 48.3 % (37.0-53.0); Hemoglobin 15.9 g/dL (13.5-17.5); Mean Corpuscular HGB 29.7 pg (26.0-34.0); Mean Corpuscular HGB Conc 32.9 g/dL (31.5-36.5); Mean Corpuscular Volume 90 fL (80-100); Mean Platelet Volume 11.2 fL (9.1-12.4); Platelet Count 243 K/mm3 (150-400); RDW Coefficient Variation 17.4 % (11.7-14.2); RDW Standard Deviation 52.5 fL (35.1-46.3); Red Blood Cell Count 5.35 M/mm3 (4.30-5.90); White Blood Cell Count 8.52 K/mm3 (4.00-11.30)
[2023-05-03 04:41] LABS: Albumin, Blood 2.8 g/dL (3.4-5.0); Albumin/Globulin Ratio 0.7 (0.8-1.8); Bilirubin, Total 0.9 mg/dL (0.1-1.0); Bun/Creatinine Ratio 26.1 (12.0-20.0); Calcium, Blood 8.7 mg/dL (8.5-10.1); Creatinine, Blood 2.07 mg/dL (0.60-1.20); Globulin, Blood 3.8 g/dL (2.2-4.0); Potassium, Blood 4.1 mmol/L (3.5-5.5); Total Protein, Blood 6.6 g/dL (6.4-8.2)
--- NOTE | 2023-05-03 05:06 | NUR ---
EOS: NO CHANGES FROM ASSUMPTION OF CARE, STILL DIZZINESS, LIGHTHEADED WITH EXERTION AT TIMES, PATIENT STILL WEARING O2 VIA NC OR NO BLEED IN CPAP. PATIENT HAS BEEN SLEEPING WELL POST AMBIEN. NO VISIBLY SOB UNLESS STANDING FOR URINAL. SITTER IN THE ROOM, NO CONCERNS. PATIENT HAS HAD NO INCREASED THOUGHTS OF SI. WILL CONTINUE TO MONITOR UNTIL SHIFT CHANGE.
[2023-05-03 12:00] VITALS: BP 93/75
--- NOTE | 2023-05-03 18:52 | NUR ---
SHIFT SUMMARY PT A/OX4 AND COOPERATIVE OF CARE. PT ABLE TO EXPRESS NEEDS AND CALLS APPROPIATE. PT BP'S SOFT BUT STABLE THROUGHOUT SHIFT WITH O2 SATS IN THE 90'S ON RA. PT REPORTS SOB WITHEXERTION WHEN AMBULATING TO TOILET AND OFF O2. ONCE BACK AT BED, SATS ARE STABLE BUT PT HAS INCREASED WOB. PT RPEORTED "PRESSURE" OF RIGHT SIDE OF HIS CHEST WITH DEEP BREATHS. SI ASSESSMENT DONE PER ORDERS. 1:1 SITTER PRESENT FOR SAFETY. PT REPORTED NO SI RISKS TODAY TO THIS RN WHEN ASSESSED. PT MADE STATEMENT ABOUT HOW HE "WOULD MISS HIS GRAND AND GREAT GRANDKIDS," THIS RN HAD THERAPEUTIC CONVERSATION ABOUT HIS FAMILY. PT STILL SEEMED WITHDRAWN TODAY. PT UP TO TOILET MULTIPLE TIMES TODAY, SBA, TOLERATED WELL. PT VERY PLEASANT WITH STAFF.
--- NOTE | 2023-05-03 20:07 | NUR ---
ASSUMPTION OF CARE: NO CHANGE TO PATIENT STAUTS, BLOOD PRESSURE IS SLIGHTLY LOWER, WILL CONTINUE TO MONITOR, DENIES CHEST PAIN OR SOB AT REST AT THIS TIME, SITTER IN THE ROOM, NO ACTIVE SI, PATIENT HAS BEEN STILL HAVE EXERTIONAL CARDIAC RELATED SYNCOPAL SYMPTOMS. IMPROVED MENTATION. STILL ON 2,L CPAP AT BEDSIDE. NO CONCERNS FROM SITTER, PATIENT OR THIS BRICK AND TILE MAKING MACHINE OPERATOR AT THIS TIME.
[2023-05-03 23:34] VITALS: BP 93/77
--- NOTE | 2023-05-04 06:19 | NUR ---
EOS: NO CHANGES FROM ASSUMPTION OF CARE. PATIENT HAS BEEN SLEEPING WELL MOST OF THE NIGHT, WITH NO INTENT TO HARM SELF OR OTHERS. PATIENT HAS BEEN COOPERATIVE WITH CARE, MAY BE AT THE TIPPING POINT OF DUIRESING SYSTOLIC <100. DENIES CHEST PAIN, DID HAVE A SINGLE EPISODE OF DYSPNEA AT REST, SUBSIDED WITH REST WAS SHORT LIVED. PATIENT WITH 1:1 SITTER FOR SI SAFETY. WILL CONTINUE TO MONITOR UNTIL SHIFT CHANGE
--- NOTE | 2023-05-04 08:00 | NUR ---
INITIAL ASSESSMENT PATIENT ALERT AND ORIENTED X 4, AFEBRILE. PATIENT DENIES PAIN OR DISCOMFORT. PATIENT DEPRESSED, WITHDRAWN, WITH FLAT AFFECT. PATIENT DENIES SI AT THIS TIME. PATIENT SATTING 90% AND GREATER ON RA. PATIENT IN SR, HR IN THE 70S. SBP IN THE 90S. ORTHOSTATIC VS ESSENTIALLY THE SAME. GI AND WNL. SKIN APPEARS C/D/I. IV FLUSHED AND SALINE LOCKED. 1:1 SITTER IN ROOM. BED LOW, CALL LIGHT IN REACH.
[2023-05-04 08:01] VITALS: BP 96/75
--- NOTE | 2023-05-04 08:21 | NUR ---
CALLED DR. EDOUARD AND INFORMED OF SOFT BP. DR. DAVID STATED TO GO AHEAD AND GIVE AM BUMEX.
[2023-05-04 11:46] VITALS: BP 105/76
--- NOTE | 2023-05-04 11:54 | NUR ---
PATIENT AFEBRILE. NO COMPLAINTS OF PAIN. PATIENT CONTINUES TO DENY SI. SITTING AT BEDSIDE. HR IN THE 80S. SBP IN THE LOW 100S. BLOOD SUGAR 182; COVERAGE ADMINISTERED.
[2023-05-04 17:32] VITALS: BP 93/66
--- NOTE | 2023-05-04 17:32 | NUR ---
PATIENT AFEBRILE. HR IN THE 90S. SBP IN THE 90S. PATIENT REMAINS SATTING 90% AND GREATER ON RA. BLOOD SUGAR 349; COVERAGE ADMINISTERED. PATIENT CONTINUES TO DENY SI. BED LOW, CALL LIGHT IN REACH.
--- NOTE | 2023-05-04 18:28 | NUR ---
SHIFT SUMMARY PATIENT REMAINED ALERT AND ORIENTED X 4, AFEBRILE. PATIENT HAD NO COMPLAINTS OF PAIN THIS SHIFT. PATIENT REMAINED DENYING ANY THOUGHTS OF SELF HARM OR SUICIDE. PATIENT REMAINED CALM AND COOPERATIVE. PATIENT STATES THAT HE "SOMETIMES JUST GETS DOWN BECAUSE OF ALL HIS HEALTH PROBLEMS GOING ON AND INABILITY TO WORK". PATIENT SBA TO BATHROOM; SLIGHT WEAKNESS. PATIENT REMAINED SATTING 90% AND GREATER ON RA. PATIENT REMAINED SR, HR 70S TO 90S. SBP 90S TO LOW 100S. ORTHOSTATIC VS STABLE THIS AM. GI AND WNL THIS SHIFT. NO CHANGES TO SKIN NOTED. PATIENT HAD BEDBATH THIS SHIFT. CAME TO VISIT THIS SHIFT. PATIENT REMAINED WITH 1:1 SITTER AND IS WANTING TO GO TO INPATIENT PSYCH TO GET HELP. BED LOW, CALL LIGHT IN REACH. REPORT WILL BE GIVEN TO ASSUMING CARDIOLOGY CLINICAL CONSULTANT NURSE SHORTLY.
[2023-05-04 20:10] VITALS: BP 90/76
--- NOTE | 2023-05-04 22:59 | NUR ---
ASSUMPTION OF CARE: NO CHANGES FROM PREVIOUS SHIFT, DENIES CHEST PAIN PRESSURE OR SOB. NO SIGN OF ACUTE DISTRESS, VSS AT THIS TIME WILL CONTINUE TO MONITOR, SITTER IN THE ROOM PATIENT DENIES SI OR HI.
[2023-05-05 04:01] VITALS: BP 93/74
[2023-05-05 04:42] LABS: Bun/Creatinine Ratio 28.4 (12.0-20.0); Calcium, Blood 8.5 mg/dL (8.5-10.1); Creatinine, Blood 1.83 mg/dL (0.60-1.20); Magnesium, Blood 2.5 mg/dL (1.6-2.4); Phosphorus, Blood 3.1 mg/dL (2.5-4.9); Potassium, Blood 3.9 mmol/L (3.5-5.5)
--- NOTE | 2023-05-05 05:07 | NUR ---
EOS: NO CHANGE IN PATIENT STAUTS, PATIENT PLEASANT COOPERATIVE, SELF REPOSITIONS, FLUIDS CHARTED, PATIENT SLEPT WITH CPAP AND 2L BLEED IN WELL. DENIES CHEST PAIN PRESSURE OR ANYMORE EPISODES OF SOB THIS SHIFT. WILLCONTINUE TO MONITOR UNTIL SHIFT CHANGE.
[2023-05-05 08:37] VITALS: BP 94/80
[2023-05-05 11:41] VITALS: BP 92/78
[2023-05-05 16:13] VITALS: BP 95/80
--- NOTE | 2023-05-05 18:19 | NUR ---
SHIFT SUMMARY ALERT, ORIENTED, PLEASANT, AND COOPERATIVE WITH CARE. PATIENT IS A HIGH SUICIDE RISK WITH 1:1 SITTER. SI RISK ASSESSMENT PATIENT DENIES THOUGHTS OF HARMING HIMSELF, THOUGHTS OF SUICIDE, OR ANY PLANS OR ATTEMPTS TO HARM HIMSELF. ASSESSED BY COMMERCIAL STRIPPER AND TENTATIVE PLAN IS FOR DISCHARGE HOME TOMORROW WITH REFERRAL TO MENTAL HEALTH THERAPIST. [facility] CONSULTING SOLUTION MANAGER WILL REASSESS IN AM. PATIENT IS MEDICALLY STABLE AND READY FOR DISCHARGE PER DR DAVID. MEDICLA STATUS, NO TELE. IND IN ROOM WITH SITTER, BATHROOM LOCKED AND ATTENDED FOR ALL USE OF BATHROOM. 2L O2 PRN, REPORTS MILD SOB WITH EXERTION. DENIES CHEST PAIN. 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 TOLERATING ADA DIET. CHEM BGS COVERED PER SLIDING SCALE. VOIDING WELL, REPORTED CONSTIPATION. MIRALAX GIVEN PER EMAR. SALINE LOCKED. SPOUSE AND GRANDCHILDREN VISITED IN [place].
[2023-05-05 20:40] VITALS: BP 100/81
--- NOTE | 2023-05-05 22:23 | NUR ---
ASSUMTPINO OF CARE: PATIENT IS ALERT AND ORIENTED, CHEERFUL, PLEASANT, MAKING JOKES, COOPERATIVE WITH CARE, ANSWERING AND ASKING QUESTIONS APPROPRIATELY, HAS HAD RECENT SHOWER, AND IS LOOKING FORWARD TO DISCHARGE AND CURRENT PLAN, EVEN THOUGH IT IS NOT INPATIENT. TELE REMOVED, RATE WAS CONTROLLED AND BLOOD PRESSURE IS STABLE FOR HIM. DENIES CHEST PAIN PRESSURE OR SOB. PATIENT WITH CPAP AT BEDSIDE AND RA SATURATING WELL, HAS BEEN USING PRN, BUT NONE SO FAR THIS SHIFT. BM TODAY DURING DAY. URINATING WELL FR IN PLACE FOLLOWING. ONLY CONCERN FOR DISCHARGE HAS BEEN WE HAVE BEEN HOLDING METORPROLOL THAT HE NORMALLY TAKES DUE TO BLOOD PRESSURE, WILL NEED RECOMMENDATION FOR DISCHARGE.
[2023-05-06 03:34] VITALS: BP 104/79
[2023-05-06 04:09] LABS: Bun/Creatinine Ratio 28.9 (12.0-20.0); Calcium, Blood 8.7 mg/dL (8.5-10.1); Creatinine, Blood 1.66 mg/dL (0.60-1.20); Potassium, Blood 4.4 mmol/L (3.5-5.5)
[2023-05-06 08:30] VITALS: BP 100/79
[2023-05-06] MEDS ORDERED: MELATONIN5 M1 PO (10:37)
--- NOTE | 2023-05-06 11:13 | NUR ---
DISCHARGE PT A/O X4. DENIES PAIN, DENIES SUICIDAL IDEATION. AMBULATES IN ROOM INDEP. PT HAD 1:1 SITTER PRIOR TO DISCHARGE. AT BEDSIDE ALSO EDUCATED ABOUT DISCHARGE. MEDS CALLED TO [facility] PER PT REQUEST. PT HAS APPOINTMENT FOR OUTPATIENT THERAPY AT 1400 TODAY. NO SIGN OF DISTRESS PT LEAVES, TAKEN VIA W/C BY PCT.
== END 2023-05-06 11:12 | disposition home or self-care (01) | DRG 291 ==
LOC: ER 13:13 → PCU 13:14 → ER 13:14 → PCU 13:14 → EOR 13:14 → PCU 05-02 16:20 → EOR 05-02 18:18 → PCU 05-02 18:18
PROVIDERS: Internal Medicine; ADMIT Emergency Medicine
PROC: 5A0935A Assistance with Respiratory Ventilation, Less than 24 Consecutive Hours, High Flow/Velocity Cannula (ICD-10-PCS; principal; 2023-05-01)
DX: I13.0 Hypertensive heart and chronic kidney disease with heart failure and stage 1 through stage 4 chronic kidney disease, or unspecified chronic kidney disease (principal); I50.43 Acute on chronic combined systolic (congestive) and diastolic (congestive) heart failure; R45.851 Suicidal ideations; F32.9 Major depressive disorder, single episode, unspecified; N18.30 Chronic kidney disease, stage 3 unspecified; I25.10 Atherosclerotic heart disease of native coronary artery without angina pectoris; R55 Syncope and collapse; E03.9 Hypothyroidism, unspecified; K21.9 Gastro-esophageal reflux disease without esophagitis; R13.10 Dysphagia, unspecified; M10.9 Gout, unspecified; G47.00 Insomnia, unspecified; K59.00 Constipation, unspecified; I27.20 Pulmonary hypertension, unspecified; E11.22 Type 2 diabetes mellitus with diabetic chronic kidney disease; I34.0 Nonrheumatic mitral (valve) insufficiency; Z95.0 Presence of cardiac pacemaker; Z86.73 Personal history of transient ischemic attack (TIA), and cerebral infarction without residual deficits; I25.2 Old myocardial infarction; Z88.8 Allergy status to other drugs, medicaments and biological substances; Z79.899 Other long term (current) drug therapy; Z79.890 Hormone replacement therapy; Z90.49 Acquired absence of other specified parts of digestive tract; Z90.89 Acquired absence of other organs; Z86.718 Personal history of other venous thrombosis and embolism; Z79.01 Long term (current) use of anticoagulants
CPT/HCPCS: 36415; 71045; 80048; 80053; 81003; 82947; 83735; 83880; 84100; 84145; 84484; 85025; 85027; 93005; 93010; 94660; 94762; 96374; 99285-25; A9270; C9113; G0378; G0480; J1815; J1940

== ENCOUNTER 2023-05-08 21:39 | Inpatient (IN) | payer OTHER ==
[~2023-05-08] VITALS: Ht 177.8 cm; Wt 92.3 kg
[~2023-05-08 21:39] MED LIST changes: +MELATONIN5 M1 PO
[2023-05-08 22:34] LABS: BASOPHILS ABSOLUTE AUTO 0.11 K/mm3 (0.00-0.23); BASOPHILS PERCENT AUTO 2 % (0-2); EOSINOPHILS ABSOLUTE AUTO 0.09 K/mm3 (0.00-0.68); EOSINOPHILS PERCENT AUTO 1 % (0-6); Hematocrit 44.7 % (37.0-53.0); Hemoglobin 14.7 g/dL (13.5-17.5); IMMATURE GRAN ABSOLUTE AUTO 0.02 K/mm3 (0.00-0.10); IMMATURE GRAN PERCENT AUTO 0 % (0-1); LYMPHOCYTES ABSOLUTE AUTO 1.92 K/mm3 (0.84-5.20); LYMPHOCYTES PERCENT AUTO 27 % (21-46); MONOCYTES ABSOLUTE AUTO 0.84 K/mm3 (0.16-1.47); MONOCYTES PERCENT AUTO 12 % (4-13); Mean Corpuscular HGB Conc 32.9 g/dL (31.5-36.5); Mean Corpuscular Volume 91 fL (80-100); Mean Platelet Volume 10.8 fL (9.1-12.4); NEUTROPHILS ABSOLUTE AUTO 4.15 K/mm3 (1.96-9.15); NEUTROPHILS PERCENT AUTO 58 % (41-73); Platelet Count 174 K/mm3 (150-400); RDW Coefficient Variation 17.4 % (11.7-14.2); RDW Standard Deviation 54.4 fL (35.1-46.3); White Blood Cell Count 7.13 K/mm3 (4.00-11.30)
[2023-05-08 22:55] LABS: Albumin, Blood 2.7 g/dL (3.4-5.0); Albumin/Globulin Ratio 0.7 (0.8-1.8); Bilirubin, Total 0.9 mg/dL (0.1-1.0); Calcium, Blood 8.9 mg/dL (8.5-10.1); Creatinine, Blood 1.87 mg/dL (0.60-1.20); Globulin, Blood 3.9 g/dL (2.2-4.0); Potassium, Blood 4.5 mmol/L (3.5-5.5); Total Protein, Blood 6.6 g/dL (6.4-8.2)
[2023-05-08 22:56] LABS: Base Excess Venous 5.7 mmol/L; Bicarbonate Venous 28.5 mmol/L (24.0-30.0); PCO2 Venous 45.1 mmHg (38-42); pH Blood Venous 7.43 (7.34-7.37)
[2023-05-09 01:45] VITALS: BP 93/67
[2023-05-09 04:03] VITALS: BP 101/82
[2023-05-09 04:08] LABS: BASOPHILS ABSOLUTE AUTO 0.11 K/mm3 (0.00-0.23); BASOPHILS PERCENT AUTO 1 % (0-2); EOSINOPHILS ABSOLUTE AUTO 0.14 K/mm3 (0.00-0.68); EOSINOPHILS PERCENT AUTO 2 % (0-6); Hematocrit 48.8 % (37.0-53.0); Hemoglobin 15.9 g/dL (13.5-17.5); IMMATURE GRAN ABSOLUTE AUTO 0.03 K/mm3 (0.00-0.10); IMMATURE GRAN PERCENT AUTO 0 % (0-1); LYMPHOCYTES ABSOLUTE AUTO 2.47 K/mm3 (0.84-5.20); LYMPHOCYTES PERCENT AUTO 29 % (21-46); MONOCYTES ABSOLUTE AUTO 1.02 K/mm3 (0.16-1.47); MONOCYTES PERCENT AUTO 12 % (4-13); Mean Corpuscular HGB 29.9 pg (26.0-34.0); Mean Corpuscular HGB Conc 32.6 g/dL (31.5-36.5); Mean Corpuscular Volume 92 fL (80-100); Mean Platelet Volume 11.5 fL (9.1-12.4); NEUTROPHILS ABSOLUTE AUTO 4.76 K/mm3 (1.96-9.15); NEUTROPHILS PERCENT AUTO 56 % (41-73); Platelet Count 203 K/mm3 (150-400); RDW Coefficient Variation 17.4 % (11.7-14.2); RDW Standard Deviation 54.5 fL (35.1-46.3); Red Blood Cell Count 5.31 M/mm3 (4.30-5.90); White Blood Cell Count 8.53 K/mm3 (4.00-11.30)
[2023-05-09 04:38] LABS: Albumin, Blood 3.2 g/dL (3.4-5.0); Albumin/Globulin Ratio 0.8 (0.8-1.8); Bilirubin, Total 1.1 mg/dL (0.1-1.0); Bun/Creatinine Ratio 20.6 (12.0-20.0); Calcium, Blood 9.2 mg/dL (8.5-10.1); Creatinine, Blood 1.99 mg/dL (0.60-1.20); Magnesium, Blood 2.6 mg/dL (1.6-2.4); Potassium, Blood 4.2 mmol/L (3.5-5.5); Total Protein, Blood 7.2 g/dL (6.4-8.2)
--- NOTE | 2023-05-09 05:49 | NUR ---
SHIFT SUMMARY / ADMIT PT TO ROOM FROM ER. AXO. ON 2LNC, SPO2 >95% WITH FINE CRACKLES IN LUNG BASES BILATERALLY. PT STATES HAVING "OFTEN BREATHING EPISODES WHERE HE CAN'T SLEEP BECAUSE HE WAKES UP AND FEELS LIKE HE CAN'T BREATHE AND HAS TO CATCH UP WITH HIS BREATHING". PT GIVEN LASIX AND MIDODRINE DOSE ON ADMIT, BP STABLE, IS DIURESING. PT'S HOME CPAP SETUP IN ROOM. IN SR. CONTINENT WITH ONE EPISODE OF BOWEL INCONTINENCE DURING "BREATHING EPISODE". AFTER LASIX ADMINISTRATION, PT CONTINUING TO STATE HE CAN'T SLEEP. RT TO ROOM. PT WITNESSED HAVING COMPLETE APNEIC EPISODES WHILE RESTING AND THEN WAKING UP TACHYPNEIC TO COMPENSATE, PRESENTING POSSIBLE CARMEN HORNER AT TIMES. RT OFFERED TO PLACE PT BACK ON CPAP BUT PT SAYING "ITS ALMOST TIME, TO WAKE UP ANYWAY". PT PRESENTS SOMBER REGARDING HIS HEALTH CURRENTLY. PT IS INDEPENDENT IN ROOM CURRENTLY. CALL LIGHT WITHIN REACH.
[2023-05-09 08:25] VITALS: BP 96/81
--- NOTE | 2023-05-09 11:56 | NUR ---
Spoke with Dr Posada and discussed case. Pt may benefit from goals of care conversation including code status and considering hospice. Pt resting in bed with his eyes closed upon arrival. Spouse Mariana at bedside. Engaged in therapeutic conversation regarding goals of care. Pt is known to this show card writer from recent hospital stay. Revisited discussion that took place during last hopital stay regarding disease process. Engaged in therapeutic conversation regarding hospice services. Educated on hospice philosophy and answered questions. Pt and spouse are agreeable to hospice and spouse reports Pt's PCP discussed hospice with him during his last appointment. Discussed hospice agencies to choose from with Pt and spouse agreeable to [facility]. Discussed code status. Educated on life sustaining measures including risks and implications to CPR. Pt and spouse report wishes are DNR. Spouse assists Pt with completing POLST. POLST placed on Pt's whiteboard for hospitalist to sign. Pt would like to continue current plan of care until D/C with hospice. No other questions or concerns at this time. Spoke with Primary RN Tobias and discussed case. Spoke with Dr Posada and discussed case. Placed DNR order in [facility] per V/O from Dr Posada. Palliative Care will remain available
[2023-05-09 12:09] VITALS: BP 100/82
[2023-05-09 16:08] VITALS: BP 96/80
--- NOTE | 2023-05-09 18:17 | NUR ---
RESP DISTRESS AND PASSING OUT AT 1800 THIS RN CHECKED ON PATIENT WHILE EATING DINNER, HE WAS AWAKE SITTING AT EDGE OF BED BUT SLUMPED TO THE SIDE. STATED THAT HE WAS TOO TIRED TO EAT MORE OR SIT UP AND THAT HE WAS FEELING NAUSEATED. ASSISTED PATIENT TO LAY DOWN. WENT TO GET ZOFRAN AND ORDER HAD BEEN DC'D. CALLED DR HAWKINS AND GOT IT REORDERED. AT 1810 LOOKED INTO PATIENT ROOM AND PATIENT QUICKLY SAT UP GASPING FOR AIR. ENTERED ROOM WITH GAIL LOJA RN. 3L O2 VIA NC WAS ON PATIENT, SPO2 AT 100%. WENT TO GET ROXANOL FOR AIR HUNGER. RETURNED TO ROOM AND PATIENT WAS BREATHING A BIT EASIER. WHILE PREPARING MEDICATION PATIENT SUDDENLY SLUMPED OVER ON THE BED AND BECAME UNRESPONSIVE. HEART RATE AND RESPIRATIONS PRESENT. CALLED FOR ASSISTANCE, CHECKED BP WHICH WAS NORMAL RANGE FOR PATIENT. CALLED DR HUNTLEY AND PATIENT WOKE UP DURING CALL. PLAN PER DR HUNTLEY IS TO CONTINUE USE OF ROXANOL FOR AIR HUNGER/CHEST PAIN AND ATIVAN FOR ANXIETY. PATIENT REPORTED 7/10 CHEST PAIN. MEDICATED WITH 5 MG ROXANOL AND ZOFRAN. CHEST PAIN RESOLVED, RESP DISTRESS RESOLVED. SUPINE IN BED, HOB ELEVATED. WARM BLANKETS PLACED. SPOUSE RETURNED AND WAS UPDATED. PATIEN RESTING QUIETLY IN BED AT THIS TIME.
--- NOTE | 2023-05-09 19:36 | NUR ---
SHIFT SUMMARY DROWSY AND LETHARGIC BUT ORIENTED. SLEEPS FREQUENTLY AND WEAK. OVERALL DECLINED THROUGHOUT SHIFT. RESP SATTING 95-100% ON 2L, LS CLEAR. AIRHUNGER EPISODES WORSENED, BEGAN TREATING WITH ORAL ROXANOL. CENTRAL APNEA WITH DESATURATIONS UNIMPROVED WITH CPAP. SINUS TACH ON TELE. MEDICAL STATUS WITHOUT TELE ORDER PLACED IN AFTERNOON. LOW PO INTAKE OF FOOD, CAN BARELY TOLERATE A FEW BITES BEFORE BECOMES NAUSEATED AND ABD CRAMPS. SOME EPIDSODE OD DRY HEAVES. MEDICATED WITH ZOFRAN PER EMAR. FLUID RESTRICTION ORDER OF 2000 MLS/24 HR. CODE STATUS CHANGED TO DNR, PLAN FOR HOME ON HOSPICE ON FRIDAY. SPOUSE AND SISTER AT BEDSIDE AT END OF SHIFT. REPORT GIVEN TO HEATING SYSTEMS INSTALLER RN.
[2023-05-09 20:31] VITALS: BP 92/80
[2023-05-10 03:41] VITALS: BP 104/80
--- NOTE | 2023-05-10 04:40 | NUR ---
SHIFT SUMMARY PT REMAINS A&O X4; ALTHOUGH HAS PERIODS OF LETHARGY. PT APPEARS EXHAUSTED. PT RESPONDING APPROPRIATELY AND FOLLOWING COMMANDS. VSS; PT CONTINUES TO HAVE AIR HUNGER AND PERIODS OF APNEA IN WHICH SPO2 DECREASES. PT REBOUNDS QUICKLY. MEDICATION PER EMAR FOR AIR HUNGER. PT HAD ONE EPISODE AT START OF SHIFT IN WHICH HE "PASSED OUT" WHILE SITTING UP ALTHOUGH RESPONDED TO VERBAL AND TACTILE STIMULUS. AT BEDSIDE UNTIL 2230. PT HAD A FEW SMALL SNACKS AND ONE 400 MLS DRINK THIS SHIFT. DENIES CP OR PRESSURE. DENIES N/V. PT DOES REPORT FEELING "DIZZY" AT TIMES AND "TIRED". PT VOIDED X2 A TOTAL OF 300MLS. NO BM THIS SHIFT. 2100 METOPROLOL HELD D/T SOFT SBP. PER DAYSHIFT AND PT DID NOT EAT ANYTHING DURING THE DAY OR DINNER; 5 UNITS OF INSULIN GLARGINE GIVEN AT 2100 PER MD INSTRUCTIONS FOR 1/2 DOSE IF PT NPO/NOT INTAKING MUCH. NO OTHER CHANGES. WILL UPDATE ONCOMING RN.
[2023-05-10 08:23] VITALS: BP 104/80
--- NOTE | 2023-05-10 08:50 | NUR ---
CARE NOTE HEENA HEARN ACQUISITION EDITOR REPORTED CBG IN 90'S, DATA IS STILL TRANSFERRING AND HAS NOT POPULATED IN EMAR. WILL CONTINUE TO MONITOR CBG'S. PT IS ALERT AND ORIENTED X 4, IS AT BEDSIDE. PT REPORTED AIR HUNGER, PLEASE SEE EMAR, VSS. CALL LIGHT IN REACH.
--- NOTE | 2023-05-10 09:26 | NUR ---
CARE NOTE AT APPROX. 0915 PT REPORTED DIFFICULTY BREATHING, HE WAS TACHYPNEIC AND PALE, HR AND BP STABLE, SPO2 MAINTAINED >95% VIA 3L NC. ROXANOL GIVEN PER EMAR ORDERS, PT REPORTED IMPROVEMENT. WILL CONTINUE TO MONITOR. IS AT BEDSIDE. GAIL CORNEJOROBCindy ALSO CAME TO BEDSIDE DURING TACHYPNEIC AIR HUNGER EPISODE. PT NOW SITTING UP IN BED. CALL LIGHT W/IN REACH.
--- NOTE | 2023-05-10 10:30 | NUR ---
CARE NOTE PT APPEARS TO BE RESTING COMFORTABLY AT THIS TIME, IS AT BEDSIDE.
--- NOTE | 2023-05-10 11:18 | NUR ---
CARE NOTE PT APPEARS TO BE SLEEPING COMFORTABLY AT THIS TIME, SPO2 MAINTAINED >95% VIA CPAP W/ 2L BLEED. IS AT BEDSIDE.
[2023-05-10 13:26] VITALS: BP 99/80
[2023-05-10 15:04] VITALS: BP 92/73
--- NOTE | 2023-05-10 15:31 | NUR ---
CARE NOTE PT IS ORIENTED BUT SOMNOLENT. BP STABLE, HR ACCORDING TO SPO2 MONITOR NOTED TO DROP T0 49, SPO2 98% VIA 3L NC. PT APPEARS PALE, EXTREMETIES ARE COOL TO TOUCH. HE REPORTED FEELING MORE TIRED COMPARED TO YESTERDAY. , DAUGHTER AND GRANDSON ARE AT BEDSIDE.
--- NOTE | 2023-05-10 17:47 | NUR ---
SHIFT SUMMARY PT IS ALERT AND ORIENTED X 4, HE HAS BEEN SOMNOLENT DURING SHIFT AND REPORTED FEELING MORE TIRED TODAY. SBP NOTED TO BE IN 90'S, SPO2 MAINTAINED 99-100% VIA 3L NC OR CPAP W/ 2L BLEED WHEN SLEEPING. PT HAS HAD MULTIPLE EPISODES DIFFICULTY BREATHING/FEELINGS OF AIR HUNGER, PLEASE SEE EMAR FOR AIR HUNGER MANAGEMENT. NAUSEA WAS REPORTED ONCE DURING SHIFT BUT SUBSIDED W/OUT INTERVENTION. PT HAS DENIED FEELINGS OF CHEST PAIN BUT REPORTED FEELING DIZZY UPON AMBULATION TO BATHROOM, HE IS SBA. DURING EPISODES OF AIR HUNGER, PT WOULD SLUMP OVER AND APPEAR TACHYPNEIC. HAS BEEN AT BEDSIDE T/O SHIFT ALONG W/ MULTIPLE OTHER FAMILY MEMBERS. BLOOD GLUCOSE HAS BEEN STABLE W/ ACHS MONITORING. PT DENIED BM TODAY, MIRILAX OFFERED BUT PT DENIED WANTING MIRILAX ADMIN. HE CAN SHIFT POSITION INDEPENDENTLY IN BED. FAMILY IS CURRENTLY AT BEDSIDE. CALL LIGHT IS W/IN REACH.
[2023-05-10 20:00] VITALS: BP 98/80
[2023-05-11 04:30] VITALS: BP 96/74
--- NOTE | 2023-05-11 06:07 | NUR ---
SHIFT SUMMARY PT REMAINS ORIENTED X4; PT LETHARGIC AND "VERY TIRED". PT SLEPT MOST OF SHIFT. PT HAD A HARD TIME KEEPING EYES OPEN DURING CONVERSATION OR EVEN WHEN SITTING UP. PT STATES HE JUST "FEEL EXHAUSTED." NO REPORTS OF CP OR PRESSURE. PT REMAINS ON 3 L O2 VIA NC, SPO2 FLUCTUATING PREVIOUS. PT CONTINUES TO HAVE EPISODES OF AIR HUNGER, MEDICATION PER EMAR. PT HAD A FEW EPISODES OF NAUSEA W/DRY HEAVES. PT MEDICATED WITH ZOFRAN WITH LITTLE RELIEF. RESIDENT NOTIFIED, ONE TIME ORDER FOR PHERNGAN PER EMAR. THIS SEEMED TO PROVIDE GOOD RELIEF FOR PT. NO OTHER EPISODES SINCE ADMINISTRATION. WILL UPDATE ONCOMING RN.
[2023-05-11 07:52] VITALS: BP 102/76
--- NOTE | 2023-05-11 09:37 | NUR ---
MEDICATION ADMINISTRATION NOTE/PEPCID NOTE ORDERS FOR PEPCID BID PLACED BY THIS RN PER DR. MODI VERBAL REQUEST AFTER DISCUSSION REGARDING HEARTBURN W/ PT /PT. PHARMACY CALLED THIS RN AND ADVISED THAT PT DOES NOT EXCEED PEPCID DAILY DOSE DUE TO CREATINENE CLEARANCE LEVELS. PT AND HIS EDUCATED REGARDING MEDICATION. THIS RN DISCUSSED NAUSEA CONTROL W/ PT AND THE PT/ AGREED TO CONTINUE DAILY DOSE RATHER THAN BID. PT CONTINUES TO APEAR LETHARGIC HE WILL FALL ASLEEP IF ACTIVE PT CARE NOT BEING PERFORMED. BP AND HR STABLE, BREATHING APEARS UNLABORED AT THIS TIME. THIS NURSE ALSO HAD EDUCATIONAL DISCUSSION W/ PT REGARDING PERFUSION AND KIDNEY FUNCTION AFTER THE PT'S REQUESTED A BLADDER SCAN. THIS RN STATED THAT A BLADDER SCAN WAS NOT INDICATED DUE TO THE PT VOIDING INDEPENDENTLY/NOT RETAINING URINE. THE THEN ALSO EXPRESSED CONCERNS W/ HER HUSBANDS ENERGY LEVEL WELL HER 'S (THE PT') SLEEPING OFTEN. THIS NURSE THEN PROVIDED EDUCATION REGARDING THE PT'S HEART FUNCTION WELL HOW HEART FUNCTION AFFECTS PERFUSION. WILL CONTINUE TO PROVIDE THERAPEUTIC COMMUNICATION/EDUCATION. CALL LIGHT IS W/IN REACH.
[2023-05-11 11:16] VITALS: BP 106/77
--- NOTE | 2023-05-11 12:58 | NUR ---
CARE NOTE PT REPORTING NAUSEA W/ SMALL AMOUNT OF VOMITTING, PLEASE SEE EMAR FOR NAUSEA MANAGEMENT. STATED "IT LOOKS LIKE BLOOD IN VOMIT." VOMIT APPEARS ORANGE IN COLOR, PT REPORTED CONSUMING TOMATO JUICE EARLIER. WILL CONTINUE TO MONITOR.
[2023-05-11 16:19] VITALS: BP 95/73
--- NOTE | 2023-05-11 16:59 | NUR ---
SHIFT SUMMARY PT IS ORIENTED X 4 BUT HAS BEEN LETHARGIC T/O SHIFT. HE WAKES EASILY TO VERBAL STIMULI BUT HAS DIFFICULTY MAINTAINING WAKEFULNESS. BP AND HR STABLE, SPO2 MAINTAINED >95% VIA 3L NC WELL CPAP W/ 2L BLEED WHEN SLEEPING. HE HAS DENIED PAIN INCLUDING CHEST PAIN/PRESSURE. HE APPEARS SOB W/ EXERTION SUCH W/ REPOSITIONING OR STANDING AT BEDSIDE. HE HAS REPORTED NAUSEA DURING SHIFT AND HAS HAD MINIMAL PO INTAKE. PLEASE SEE EMAR FOR NAUSEA MANAGEMENT. NAUSEA HAS APPEARED TO RESOLVE W/ PHENERGAN ADMINISTRATION PER EMAR ORDERS. PT HAS REPORTED AIR HUNGER ONCE DURING SHIFT, PLEASE SEE EMAR FOR AIR HUNGER MANAGEMENT. HIS HAS BEEN AT BEDSIDE T/O SHIFT. PT IS NOW EATING DINNER IN BED, CALL LIGHT IS W/IN REACH.
[2023-05-11 19:45] VITALS: BP 96/75
[2023-05-11 23:16] VITALS: BP 98/80
--- NOTE | 2023-05-12 04:15 | NUR ---
SHIFT SUMMARY: Pt medicated for pain and nausea overnight. Slept on and off, on 3L NC when awake and CPAP with 3L bleed in while asleep. Vitals stable.
[2023-05-12 07:21] VITALS: BP 97/78
--- NOTE | 2023-05-12 07:28 | NUR ---
Am note Patient alert, oriented X4; calm and cooperative with care, flat at times. Denies pain, chest pain, sob, nausea, dizziness and numb/tingling at this time. Spo2 >90% on ra, breathing even and unlabored at this time, ls clear/dim. Bp soft, hr 70's, murmur noted. Abd soft nontender with hyperactive bt. Trace/1+ edema noted t/o. Ble cold and faint pulses. Other vss. No other acute changes noted. Will continue to monitor.
[2023-05-12] MEDS ORDERED: LORA.5 PO (10:19)
[2023-05-12] MEDS ORDERED: FURO20 PO (10:19)
[2023-05-12] MEDS ORDERED: MORPHINE CONCENTRATE PO (10:21)
[2023-05-12] MEDS ORDERED: PROM25 PO (10:22)
[2023-05-12] MEDS ORDERED: ALDACTONE25 MG PO (10:22)
[2023-05-12 12:30] VITALS: BP 96/75
--- NOTE | 2023-05-12 13:30 | NUR ---
Discharge summary Pt reporting nausea after breakfast, medicated with prn, discussed with Dr Murillo, new order entered. No other acute changes noted. VSS. Educated patient and spouse of discharge instructions. Order Mapper delivered portable 02. Pt left room via wheelchair at approx [phone]
== END 2023-05-12 12:43 | disposition hospice, home (50) | DRG 291 ==
LOC: ER 21:39 → PCU 05-09 01:03
PROVIDERS: Student in an Organized Health Care Education/Training Program; ADMIT Student in an Organized Health Care Education/Training Program
DX: I13.0 Hypertensive heart and chronic kidney disease with heart failure and stage 1 through stage 4 chronic kidney disease, or unspecified chronic kidney disease (principal); I50.43 Acute on chronic combined systolic (congestive) and diastolic (congestive) heart failure; I42.8 Other cardiomyopathies; I50.810 Right heart failure, unspecified; N18.30 Chronic kidney disease, stage 3 unspecified; E03.9 Hypothyroidism, unspecified; K21.9 Gastro-esophageal reflux disease without esophagitis; M10.9 Gout, unspecified; I95.89 Other hypotension; Z66 Do not resuscitate; Z51.5 Encounter for palliative care; F32.A Depression, unspecified; G47.00 Insomnia, unspecified; E11.22 Type 2 diabetes mellitus with diabetic chronic kidney disease; I27.20 Pulmonary hypertension, unspecified; Z86.73 Personal history of transient ischemic attack (TIA), and cerebral infarction without residual deficits; I25.2 Old myocardial infarction; Z86.718 Personal history of other venous thrombosis and embolism; Z88.8 Allergy status to other drugs, medicaments and biological substances; Z91.018 Allergy to other foods; Z79.4 Long term (current) use of insulin; Z79.899 Other long term (current) drug therapy; Z79.890 Hormone replacement therapy; Z79.01 Long term (current) use of anticoagulants; Z90.49 Acquired absence of other specified parts of digestive tract; Z90.89 Acquired absence of other organs; Z95.0 Presence of cardiac pacemaker; Z87.891 Personal history of nicotine dependence
CPT/HCPCS: 36415; 71046; 74177; 80053; 82803; 82947; 83690; 83735; 83880; 84439; 84443; 84484; 85025; 93005; 93010; 94660; 94762; 96360-59; 96361; 99285-25; A9270; J1815; J1940; J2060; J2405; J7030; Q9967